=== PATIENT | female | born 1960 | race American Indian/Alaskan Native ===

== ENCOUNTER 2018-03-09 16:40 | Inpatient (IN) | payer OTHER ==
[2018-03-09 17:12] VITALS: BMI 39.5
--- NOTE | 2018-03-09 17:33 | ED PDOC ---
Arrival/HPI - General Chief Complaint: Abnormal Skin Integrity Time Seen by Provider: 03/09/18 16:45 Historian: Patient - History of Present Illness Narrative History of Present Illness (Text): 03/09/18 17:04 57 year old female, with past medical history of diabetes, hypertension and past surgical history of hysterectomy, presents to the Emergency Department for evaluation of left foot 3rd digit ulceration since 4 weeks. Patient informs visiting her rugby union footballer Dr. Gilliam, who subsequently referred patient to the wound center for evaluation. At the wound center, patient was informed of infection to bone and was subsequently sent to the Emergency Department by Dr. Mi for evaluation of possible osteomyelitis and admission to the hospital. At bedside, patient denies any other somatic complaints. Patient denies any f ever, chills, nausea, vomiting, diarrhea, abdominal pain, chest pain, shortness of breath, cough, headache, dizziness, neck pain, back pain, or any other complaints. PMD: Giselle Time/Duration: > week Symptom Onset: Gradual Symptom Course: Unchanged Activities at Onset: Light Context: Other (Referred from the wound center) Past Medical History - Provider Review Nursing Documentation Reviewed: Yes - Infectious Disease Hx of Infectious Diseases: None - Cardiac Hx Cardiac Disorders: Yes Hx Hypertension: Yes - Pulmonary Hx Respiratory Disorders: No - Neurological Hx Neurological Disorder: No - HEENT Hx HEENT Disorder: No - Renal Hx Renal Disorder: No - Endocrine/Metabolic Hx Endocrine Disorders: Yes Hx Diabetes Mellitus Type 2: Yes - Hematological/Oncological Hx Blood Disorders: No - Integumentary Hx Dermatological Disorder: Yes Other/Comment: B/L foot ulcers - Musculoskeletal/Rheumatological Hx Musculoskeletal Disorders: No - Gastrointestinal Hx Gastrointestinal Disorders: No - Genitourinary/Gynecological Hx Genitourinary Disorders: No - Psychiatric Hx Psychophysiologic Disorder: No Hx Substance Use: No - Surgical History Hx Cholecystectomy: Yes Family/Social History - Physician Review Nursing Documentation Reviewed: Yes Family/Social History: Unknown Family HX Smoking Status: Never Smoked Hx Alcohol Use: No Hx Substance Use: No Allergies/Home Meds Allergies/Adverse Reactions: Allergies No Known Allergies Allergy (Verified 03/09/18 16:59) Home Medications: Home Meds Medication Instructions Recorded Confirmed Gabapentin [Neurontin] 1 cap PO DAILY 03/09/18 03/09/18 Glyburide-Metformin 5-500 mg 1 tab PO DAILY 03/09/18 03/09/18 Losartan-Hctz 100-25 mg Tab 1 tab PO DAILY 03/09/18 03/09/18 Nabumetone 1 tab PO DAILY 03/09/18 03/09/18 Simvastatin [Zocor] 1 tab PO DAILY 03/09/18 03/09/18 Review of Systems - Physician Review All systems were reviewed & negative as marked: Yes - Review of Systems Constitutional: absent: Fevers Respiratory: absent: SOB, Cough Cardiovascular: absent: Chest Pain Gastrointestinal: absent: Abdominal Pain, Diarrhea, Nausea, Vomiting Genitourinary Female: absent: Dysuria, Hematuria Musculoskeletal: absent: Back Pain, Neck Pain Skin: Ulcer (left foot 3rd digit) Neurological: absent: Headache, Dizziness Physical Exam Vital Signs Reviewed: Yes Vital Signs Temp Pulse Resp BP Pulse Ox 03/09/18 16:58 98.2 F 83 19 172/94 H 100 Temperature: Afebrile Blood Pressure: Hypertensive Pulse: Regular Respiratory Rate: Normal Appearance: Positive for: Well-Appearing, Non-Toxic, Comfortable Pain Distress: None Mental Status: Positive for: Alert and Oriented X 3 - Systems Exam Head: Present: Atraumatic, Normocephalic Pupils: Present: PERRL Extroacular Muscles: Present: EOMI Conjunctiva: Present: Normal Neck: Present: Normal Range of Motion Respiratory/Chest: Present: Clear to Auscultation, Good Air Exchange. No: Respiratory Distress, Accessory Muscle Use Cardiovascular: Present: Regular Rate and Rhythm, Normal S1, S2. No: Murmurs Abdomen: No: Tenderness, Distention, Peritoneal Signs Back: Present: Normal Inspection Upper Extremity: Present: Normal Inspection. No: Cyanosis, Edema Lower Extremity: Present: Other (no palpable pt or dp pulses. Open wound to left 3rd to dorsal aspect, at PIP. Clear drainage. ). No: Edema Neurological: Present: GCS=15, CN II-XII Intact, Speech Normal Skin: Present: Warm, Dry, Normal Color. No: Rashes Psychiatric: Present: Alert, Oriented x 3, Normal Insight, Normal Concentration Medical Decision Making ED Course and Treatment: 03/09/18 17:04 Impression: 57 year old female presents to the Emergency Department for evaluation of left foot 3rd digit ulceration. Differential Diagnosis included but are not limited to: Osteomyelitis Plan: -- Labs -- Blood Culture -- Wound Culture -- X-ray of Left Foot -- US of Lower Extremity -- Reassess and disposition Prior Visits: Notes and results from previous visits were reviewed. Progress Notes: 03/09/18 17:04 2+ dp pulse achieved with doppler. 03/09/18 18:55 X-ray of left foot reviewed, shows air around 3rd digit, fracture to the 2nd digit and possible osteomyelitis. Patient was made aware and reports no discom fort to the area. Patient states she possibly have had fracture in the past to one of her digits but is unable to recall the incident or the time. 03/09/18 19:08 Discussed case with medical secretary receptionist, who is aware and agrees with Emergency Department management plan, accepts patient under Dr. Pelletier's service. 03/09/18 19:42 Dr. Pelletier evaluated patient at bedside, accepts patient under her service. 03/09/18 19:46 Patient reports noncompliance with her blood pressure medications all day. - RAD Interpretation Radiology Orders: 03/09/18 17:07 FOOT LEFT 3 VIEWS ROUTINE [RAD] Stat 03/09/18 17:14 DUPLEX LOWER EXTRM ARTR BILAT [US] Stat - Scribe Statement The provider has reviewed the documentation as recorded by the Scribe Ana Mccartney. All medical record entries made by the Scribe were at my direction and personally dictated by me. I have reviewed the chart and agree that the record accurately reflects my personal performance of the history, physical exam, medical decision making, and the department course for this patient. I have also personally directed, reviewed, and agree with the discharge instructions and disposition. Disposition/Present on Arrival - Present on Arrival History of DVT/PE: No History of Uncontrolled Diabetes: No Urinary Catheter: No History of Decub. Ulcer: No History Surgical Site Infection Following: None - Disposition Disposition Time: 19:10 Forms: [employer] ([place])
[2018-03-09 18:01] LABS: BASO # 0.04 K/mm3 (0.0-2.0); BASO % 0.6 % (0.0-3.0); EOS # 0.4 (0.0-0.7); EOS % 4.9 % (1.5-5.0); GRAN # 3.27 (1.4-6.5); GRAN % 45.3 % (50.0-68.0); HEMOGLOBIN 11.6 g/dL (12.0-16.0); LYMPH % 41.7 % (22.0-35.0); MEAN CELL VOLUME 91.3 fl (80.0-105.0); MEAN CORPUSCULAR HEMOGLOBIN 29.7 pg (25.0-35.0); MEAN CORPUSCULAR HGB CONC 32.5 g/dl (31.0-37.0); MEAN PLATELET VOLUME 11.2 fl (7.0-11.0); MONO # 0.5 (0.1-0.6); MONO % 7.5 % (1.0-6.0); RBC 3.91 10^6/uL (3.5-6.1); RED CELL DISTRIBUTION WIDTH 13.5 % (11.5-14.5); WHITE BLOOD COUNT 7.2 10^3/ul (4.5-11.0)
[2018-03-09] MEDS ORDERED: Vancomycin 1gm in NS 250ml 1 GM/250 ML BAG IVPB STA (18:56)
--- NOTE | 2018-03-09 19:12 | CP.PCM.HP ---
<Kosta Capps - Last Filed: 03/09/18 20:42> History of Present Illness - History of Present Illness History of Present Illness: Kosta Capps PGY1 History and Physical for Dr Pelletier Pt is a 57 year old female, with PMH of DM, HTN, HLD, and peripheral neuropathy who presents to the ED for evaluation of left foot 3rd digit ulceration since 3 weeks. Pt states she was breaking in a new pair of shoes and noticed that a sore was forming. Pt has not seen a unisaw operator for the past 5 years because she has been looking for a new one. Patient informs visiting her new unisaw operator Dr. Gilliam, who subsequently referred patient to the wound center for evaluation. Patient was informed of possible infection to bone and was subsequently sent to the ED for evaluation of possible osteomyelitis and admission to the hospital. Pt states her unisaw operator found bone fragments in the ulcer and sent them to pathology. Pt has never had a bone infection in the past. She states that she only goes to the unisaw operator when she has "foot problems". Pt denies any drainage or pus, she states that the ulcer started to bleed this week which is why she decided to go to the unisaw operator. Patient denies any fever, chills, nausea, vomiting, diarrhea, abdominal pain, chest pain, shortness of breath, cough, headache, or dizziness. A 12 point ROS was obtained and added to the HPI where appropriate. PMH: DM, HTN, peripheral neuropathy, HLD PSH: cholecystectomy, gastric bypass, hammertoe, FH: mother 68, DM stomach cancer, Father 70, cancer SH: tobacco denies, alcohol denies, drugs denies Home meds: losartan/HCTZ 100-25, gabapentin 300, glyburide/metformin 5-500, simvastain 20, nabumetone 750 Allergies: denies ED: pt given vancomycin, xray of foot shows fracture of 2nd toe(pt unaware of fracture or any trauma), pt denies any history of kidney disease or calcium derangements Present on Admission - Present on Admission Any Indicators Present on Admission: No Review of Systems - Review of Systems Review of Systems: a 12 point ROS was obtained and added to the HPI where appropriate Past Patient History - Infectious Disease Hx of Infectious Diseases: None - Past Social History Smoking Status: Never Smoked - CARDIAC Hx Cardiac Disorders: Yes Hx Hypertension: Yes - PULMONARY Hx Respiratory Disorders: No - NEUROLOGICAL Hx Neurological Disorder: No - HEENT Hx HEENT Problems: No - RENAL Hx Chronic Kidney Disease: No - ENDOCRINE/METABOLIC Hx Endocrine Disorders: Yes Hx Diabetes Mellitus Type 2: Yes - HEMATOLOGICAL/ONCOLOGICAL Hx Blood Disorders: No - INTEGUMENTARY Hx Dermatological Problems: Yes Other/Comment: B/L foot ulcers - MUSCULOSKELETAL/RHEUMATOLOGICAL Hx Musculoskeletal Disorders: No - GASTROINTESTINAL Hx Gastrointestinal Disorders: No - GENITOURINARY/GYNECOLOGICAL Hx Genitourinary Disorders: No - PSYCHIATRIC Hx Psychophysiologic Disorder: No Hx Substance Use: No - SURGICAL HISTORY Hx Cholecystectomy: Yes - ANESTHESIA Hx Anesthesia: No Meds Allergies/Adverse Reactions: Allergies Allergy/AdvReac Type Severity Reaction Status Date / Time No Known Allergies Allergy Verified 03/09/18 16:59 Physical Exam - Constitutional Appears: No Acute Distress - Head Exam Head Exam: ATRAUMATIC, NORMAL INSPECTION - Eye Exam Eye Exam: EOMI - ENT Exam ENT Exam: Mucous Membranes Moist - Respiratory Exam Respiratory Exam: Clear to Auscultation Bilateral, NORMAL BREATHING PATTERN. absent: Wheezes, Respiratory Distress - Cardiovascular Exam Cardiovascular Exam: RRR, +S1, +S2. absent: Diastolic murmur, Systolic Murmur - GI/Abdominal Exam GI & Abdominal Exam: Normal Bowel Sounds, Soft - Extremities Exam Extremities exam: Positive for: full ROM, pedal pulses present. Negative for: calf tenderness Additional comments: left foot, middle digit has ulcer on superior aspect of toe, foot has deformity - Neurological Exam Neurological exam: Alert, Oriented x3 - Psychiatric Exam Psychiatric exam: Normal Affect, Normal Mood - Skin Skin Exam: Intact, Normal Color, Warm Results - Vital Signs Recent Vital Signs: Last Vital Signs Temp 98.7 F 03/09/18 18:41 Pulse 80 03/09/18 18:41 Resp 17 03/09/18 18:41 BP 200/109 H 03/09/18 18:41 Pulse Ox 100 03/09/18 18:41 - Labs Result Diagrams: 03/09/18 17:45 03/09/18 19:23 Labs: Laboratory Results - last 24 hr 03/09/18 17:45 WBC 7.2 RBC 3.91 Hgb 11.6 L Hct 35.7 L MCV 91.3 MCH 29.7 MCHC 32.5 RDW 13.5 Plt Count 274 MPV 11.2 H Gran % 45.3 L Lymph % (Auto) 41.7 H Barnes % (Auto) 7.5 H Eos % (Auto) 4.9 Baso % (Auto) 0.6 Gran # 3.27 Lymph # (Auto) 3.0 Barnes # (Auto) 0.5 Eos # (Auto) 0.4 Baso # (Auto) 0.04 ESR 5 Assessment & Plan - Assessment and Plan (Free Text) Assessment: Pt is a 57 year old female, with PMH of DM, HTN, HLD, and peripheral neuropathy who presents to the ED for evaluation of left foot 3rd digit ulceration since 3 weeks, pt was sent here to be evaluated for osteomyelitis. Plan: Possible Osteomyelitis of Left foot, 3rd digit - follow up blood cultures - follow up wound cultures - follow up official read of foot Xray - follow up MRI - follow up procal - vancomycin, renally dosed, (pt may tolerate up to 1500mg per 24 hours, per pharmacy) - follow up duplex - ID consulted - Vascular consulted - Podiatry consulted Elevated Creatinine - Cr 2.2 - BUN 28 - pt denies history of kidney disease Hypocalcemia - follow up PTH - follow up repeat CMP - Ca 6.7, (corrected for albumin to 7.58) - pt denies history of calcium derangements DM - peripheral neuropathy - gabapentin - ISS - A1C HTN - HCTZ - losartan HLD - lipid panel - continue home simvastatin Ppx - lovenox Pt seen, examined, assessment and plan discussed with Dr Liyah Capps PGY1 - Date & Time Date: 03/09/18 Time: 20:26 <Stephania Pelletier - Last Filed: 03/09/18 23:45> Results - Vital Signs Recent Vital Signs: Last Vital Signs Temp 98.7 F 03/09/18 18:41 Pulse 79 03/09/18 23:00 Resp 18 03/09/18 23:00 BP 138/70 03/09/18 23:00 Pulse Ox 98 03/09/18 23:00 - Labs Result Diagrams: 03/09/18 17:45 03/09/18 22:04 Labs: Laboratory Results - last 24 hr 03/09/18 03/09/18 03/09/18 17:45 19:23 22:04 WBC 7.2 RBC 3.91 Hgb 11.6 L Hct 35.7 L MCV 91.3 MCH 29.7 MCHC 32.5 RDW 13.5 Plt Count 274 MPV 11.2 H Gran % 45.3 L Lymph % (Auto) 41.7 H Barnes % (Auto) 7.5 H Eos % (Auto) 4.9 Baso % (Auto) 0.6 Gran # 3.27 Lymph # (Auto) 3.0 Barnes # (Auto) 0.5 Eos # (Auto) 0.4 Baso # (Auto) 0.04 ESR 5 Sodium 143 140 Potassium 3.8 4.4 Chloride 118 H 113 H Carbon Dioxide 18 L 19 L Anion Gap 10 13 BUN 28 H 33 H Creatinine 2.2 H 2.8 H Est GFR ( Amer) 28 21 Est GFR (Non-Af Amer) 23 17 Random Glucose 153 H 240 H Calcium 6.7 L* 8.1 L Phosphorus 4.4 Magnesium 1.7 Total Bilirubin 0.4 0.3 AST 20 21 ALT 25 27 Alkaline Phosphatase 91 120 Total Protein 6.2 7.0 Albumin 2.9 L 3.5 Globulin 3.3 3.5 Albumin/Globulin Ratio 0.9 L 1.0 L Attending/Attestation - Attestation I have personally seen and examined this patient.: Yes I have fully participated in the care of the patient.: Yes I have reviewed all pertinent clinical information: Yes Notes (Text): 03/09/18 23:38 Patient seen with the resident by the bedside. Case discussed in detail. O/E pt's R foot has old healed surgical scars. Agree with the resident's documentation,assessment and plan of treatment.
[2018-03-09 19:41] LABS: ALB/GLOB RATIO 0.9 (1.1-1.8); ALBUMIN 2.9 g/dL (3.0-4.8); CALCIUM 6.7 mg/dL (8.4-10.5)
[2018-03-09] MEDS ORDERED: Sodium Chloride 0.9% 1,000 ML IV SCH (20:00)
[2018-03-09 22:22] LABS: ALBUMIN 3.5 g/dL (3.0-4.8); ALT/SGPT 27 U/L (7-56); AST/SGOT 21 U/L (14-36); BLOOD UREA NITROGEN 33 mg/dL (7-21); CALCIUM 8.1 mg/dL (8.4-10.5); GFR NON-AFRICAN AMERICAN 17
[2018-03-09] MEDS: Sodium Chloride 0.9% 1,000 ML IV SCH (23:30)
[2018-03-10 01:01] LABS: CREATININE,RANDOM URINE 63 mg/dL
[2018-03-10] MEDS ORDERED: Pneumococcal 23-Valent Vaccine IM ONE (01:36)
[2018-03-10] MEDS ORDERED: Influenza Vaccine 60 mcg/0.5 mL SYR (4YR UP) IM ONE (01:36)
[2018-03-10 07:02] LABS: BASO # 0.06 K/mm3 (0.0-2.0); BASO % 0.9 % (0.0-3.0); EOS # 0.3 (0.0-0.7); EOS % 4.8 % (1.5-5.0); GRAN # 2.75 (1.4-6.5); GRAN % 40.3 % (50.0-68.0); HEMOGLOBIN 10.4 g/dL (12.0-16.0); LYMPH % 44.6 % (22.0-35.0); MEAN CELL VOLUME 92.9 fl (80.0-105.0); MEAN CORPUSCULAR HEMOGLOBIN 29.6 pg (25.0-35.0); MEAN CORPUSCULAR HGB CONC 31.9 g/dl (31.0-37.0); MEAN PLATELET VOLUME 10.5 fl (7.0-11.0); MONO # 0.6 (0.1-0.6); MONO % 9.4 % (1.0-6.0); RBC 3.51 10^6/uL (3.5-6.1); RED CELL DISTRIBUTION WIDTH 13.3 % (11.5-14.5); WHITE BLOOD COUNT 6.8 10^3/ul (4.5-11.0)
[2018-03-10 07:11] LABS: ALBUMIN 3.5 g/dL (3.0-4.8); CALCIUM 8.5 mg/dL (8.4-10.5)
[2018-03-10] MEDS: Insulin Lispro (humaLOG) LOW Coverage SC SCH ×4 (07:53→22:44)
[2018-03-10] MEDS ORDERED: Enoxaparin 40 mg Syringe SC SCH (10:00)
--- NOTE | 2018-03-10 10:04 | US ---
PROCEDURE: Lower extremity SABAS exam HISTORY: Peripheral vascular disease with pain and left 3rd toe ulcer. Diabetes. PHYSICIAN(S): Rigo Hebert MD. FINDINGS: The exam is limited by noncompressible vessels at multiple levels. The left resting SABAS is not obtainable. The right resting SABAS is abnormally elevated, 1.35 The brachial systolic pressures are symmetric. The high thigh pressures are noncompressible. The high thigh PVR waveforms are relatively normal and symmetric. The calf PVR waveforms augment normally. No significant gradients are noted across the thighs. The left ankle and metatarsal PVR waveforms are relatively normal. The right ankle and metatarsal waveforms are mildly diminished in amplitude. This could represent subtle right tibial occlusive disease. IMPRESSION: 1. Limited study due to calcified, noncompressible vessels. 2. Possible right tibial occlusive disease
[2018-03-10] MEDS: Piperacillin/Tazobact 3.375 gm 100 ML IVPB SCH ×2 (10:11→17:19)
--- NOTE | 2018-03-10 11:02 | CP.PCM.PN ---
Subjective - Date & Time of Evaluation Date of Evaluation: 03/10/18 Time of Evaluation: 11:00 - Subjective Subjective: Podiatry consult note for Dr. Beckett/Hiwot, Pt is a 57 year old female, with PMH of DM, HTN, HLD, and peripheral neuropathy who was seen at bedside for evaluation of left foot 3rd digit ulceration since 3 weeks. Patient states she bought a new pair of sneakers and noticed that a sore was forming. Patient states she recently saw a railroad repairer and was advised to come to the ED because the bone was coming out. Patient states the railroad repairer sent the bone to pathology. Denies seeing any drainage Patient denies any fever, chills, nausea, vomiting, chest pain, shortness of breath, cough, headache, or dizziness. PMH: DM, HTN, peripheral neuropathy, HLD PSH: cholecystectomy, gastric bypass, hammertoe, FH: mother 68, DM stomach cancer, Father 70, cancer SH: tobacco denies, alcohol denies, drugs denies Home meds: losartan/HCTZ 100-25, gabapentin 300, glyburide/metformin 5-500, simvastain 20, nabumetone 750 Allergies: denies Objective - Vital Signs/Intake and Output Vital Signs (last 24 hours): Temp Pulse Resp BP Pulse Ox 97.6 F 74 20 138/84 99 03/10/18 06:00 03/10/18 06:00 03/10/18 06:00 03/10/18 06:00 03/10/18 06:00 Intake and Output: 03/10/18 03/10/18 06:59 18:59 Intake Total 720 Balance 720 - Medications Medications: Current Medications Ascorbic Acid (Vitamin C 500 Mg Tab) 500 mg PO DAILY [facility] Last Admin: 03/10/18 10:10 Dose: 500 mg Enoxaparin Sodium (Lovenox) 40 mg SC DAILY [facility]; Protocol Last Admin: 03/10/18 10:09 Dose: 40 mg Gabapentin (Neurontin) 300 mg PO DAILY [facility]; Protocol Last Admin: 03/10/18 10:10 Dose: 300 mg Sodium Chloride (Sodium Chloride 0.9%) 1,000 mls @ 60 mls/hr IV .[id number] [facility] Last Admin: 03/09/18 23:30 Dose: 60 mls/hr Piperacillin Sod/Tazobactam Sod (Zosyn 3.375 In Ns 100ml) 100 mls @ 25 mls/hr IVPB Q8H [facility]; Protocol Last Admin: 03/10/18 10:11 Dose: 25 mls/hr Insulin Human Lispro (Humalog Low) 0 units SC ACHS [facility]; Protocol Last Admin: 03/10/18 07:53 Dose: Not Given Zinc Sulfate (Zinc Sulfate 220 Mg Cap) 220 mg PO DAILY [facility] Last Admin: 03/10/18 10:10 Dose: 220 mg - Labs Labs: 03/10/18 06:40 03/10/18 06:40 - Constitutional Appears: Well, Non-toxic, No Acute Distress - Head Exam Head Exam: ATRAUMATIC, NORMOCEPHALIC - Extremities Exam Additional comments: Left lower extremity exam: Vascular: DP 1/4, PT nonpalpable, CFT <3 secs x 4, TG warm to cool, no erythema noted, edema noted to the third digit Derm: .6 cm circular ulcer noted on the dorsal third PIPJ, no drainage or malodor noted, probe to bone, hyperpigmented skin noted periwound, base is 50:50 fibrotic and granular, no other open lesions noted Ortho: no pain on palpation to the third or second digit not. Neuro: protective sensation grossly diminished - Neurological Exam Neurological Exam: Alert, Awake, Oriented x3 - Psychiatric Exam Psychiatric exam: Normal Affect - Skin Skin Exam: Normal Color Assessment and Plan - Assessment and Plan (Free Text) Assessment: 57 yo female seen at bedside for left third digit ulcer with possible osteomyelitis Plan: Patient seen and evaluated Chart, labs and vitals reviewed; afebrile and wbc 9.9 Wound cultures taken and ordered Surgical shoe dispensed MRI of the LLE ordered arterial studies ordered x-ray ordered and reviewed: official read pending Podiatry will continue to follow the patient while in house Thank you for allowing us to partake in care of this patient
--- NOTE | 2018-03-10 11:30 | CP.PCM.PN ---
<Kosta Capps - Last Filed: 03/10/18 11:51> Subjective - Date & Time of Evaluation Date of Evaluation: 03/10/18 Time of Evaluation: 07:00 - Subjective Subjective: Pt seen and examined this morning. Pt denies fever, chills, diaphoresis, chest pain, SOB or foot pain. Objective - Vital Signs/Intake and Output Vital Signs (last 24 hours): Temp Pulse Resp BP Pulse Ox 97.6 F 74 20 138/84 99 03/10/18 06:00 03/10/18 06:00 03/10/18 06:00 03/10/18 06:00 03/10/18 06:00 Intake and Output: 03/10/18 03/10/18 06:59 18:59 Intake Total 720 Balance 720 - Medications Medications: Current Medications Ascorbic Acid (Vitamin C 500 Mg Tab) 500 mg PO DAILY [facility] Last Admin: 03/10/18 10:10 Dose: 500 mg Enoxaparin Sodium (Lovenox) 40 mg SC DAILY [facility]; Protocol Last Admin: 03/10/18 10:09 Dose: 40 mg Gabapentin (Neurontin) 300 mg PO DAILY [facility]; Protocol Last Admin: 03/10/18 10:10 Dose: 300 mg Sodium Chloride (Sodium Chloride 0.9%) 1,000 mls @ 60 mls/hr IV .[id number] [facility] Last Admin: 03/09/18 23:30 Dose: 60 mls/hr Piperacillin Sod/Tazobactam Sod (Zosyn 3.375 In Ns 100ml) 100 mls @ 25 mls/hr IVPB Q8H [facility]; Protocol Last Admin: 03/10/18 10:11 Dose: 25 mls/hr Insulin Human Lispro (Humalog Low) 0 units SC ACHS [facility]; Protocol Last Admin: 03/10/18 07:53 Dose: Not Given Zinc Sulfate (Zinc Sulfate 220 Mg Cap) 220 mg PO DAILY [facility] Last Admin: 03/10/18 10:10 Dose: 220 mg - Labs Labs: 03/10/18 06:40 03/10/18 06:40 - Head Exam Head Exam: ATRAUMATIC, NORMAL INSPECTION, NORMOCEPHALIC - Eye Exam Eye Exam: EOMI - ENT Exam ENT Exam: Mucous Membranes Moist - Neck Exam Neck Exam: Full ROM - Respiratory Exam Respiratory Exam: Clear to Ausculation Bilateral, NORMAL BREATHING PATTERN. absent: Wheezes, Respiratory Distress - Cardiovascular Exam Cardiovascular Exam: RRR, +S1, +S2. absent: Diastolic murmur, Murmur - GI/Abdominal Exam GI & Abdominal Exam: Soft, Normal Bowel Sounds. absent: Tenderness - Extremities Exam Extremities Exam: Full ROM, Normal Inspection. absent: Pedal Edema Additional comments: 3rd toe on left foot bandage clean dry and intact - Neurological Exam Neurological Exam: Alert, Awake, Normal Gait, Oriented x3 - Psychiatric Exam Psychiatric exam: Normal Affect, Normal Mood - Skin Skin Exam: Dry, Normal Color, Warm Assessment and Plan - Assessment and Plan (Free Text) Assessment: Pt is a 57 year old female, with PMH of DM, HTN, HLD, and peripheral neuropathy who presents to the ED for evaluation of left foot 3rd digit ulceration since 3 weeks, pt was sent here to be evaluated for osteomyelitis. Plan: Possible Osteomyelitis of Left foot, 3rd digit - blood cultures: pending - wound cultures: pending - Foot Xray: pending official read - MRI foot: pending official read - Procal: pending - CRP pending - vancomycin dose given in ED - zosyn - Duplex LE: limited study due to calcified, noncompressible vessels. Possible right tibial occlusive disease - ID, Vascular, Podiatry consulted Elevated Creatinine - Cr 2.8, BUN 31 - renal US: pending - pt denies history of kidney disease - Nephrology consulted Hypocalcemia - follow up PTH - Ca 8.5 - pt denies history of calcium derangements DM - peripheral neuropathy - gabapentin - ISS - A1C HTN - HCTZ - losartan HLD - Trig 68, LDL 67, HDL 53 - continue home simvastatin Ppx - lovenox Pt seen, examined, assessment and plan discussed with Dr Delmy Capps PGY1 Internal Medicine Resident <Ana Brock - Last Filed: 03/11/18 07:08> Objective - Vital Signs/Intake and Output Vital Signs (last 24 hours): Temp Pulse Resp BP Pulse Ox 97.6 F 87 20 136/76 98 03/10/18 16:59 03/10/18 16:59 03/10/18 16:59 03/10/18 16:59 03/10/18 16:59 Intake and Output: 03/10/18 03/11/18 18:59 06:59 Intake Total 800 Balance 800 - Medications Medications: Current Medications Ascorbic Acid (Vitamin C 500 Mg Tab) 500 mg PO DAILY [facility] Last Admin: 03/10/18 10:10 Dose: 500 mg Enoxaparin Sodium (Lovenox) 30 mg SC DAILY [facility]; Protocol Gabapentin (Neurontin) 300 mg PO DAILY [facility]; Protocol Last Admin: 03/10/18 10:10 Dose: 300 mg Sodium Chloride (Sodium Chloride 0.9%) 1,000 mls @ 60 mls/hr IV .[id number] [facility] Last Admin: 03/11/18 00:47 Dose: 60 mls/hr Piperacillin Sod/Tazobactam Sod (Zosyn 3.375 In Ns 100ml) 100 mls @ 25 mls/hr IVPB Q8H [facility]; Protocol Last Admin: 03/11/18 00:46 Dose: 25 mls/hr Insulin Human Lispro (Humalog Low) 0 units SC ACHS [facility]; Protocol Last Admin: 03/10/18 22:44 Dose: Not Given Zinc Sulfate (Zinc Sulfate 220 Mg Cap) 220 mg PO DAILY [facility] Last Admin: 03/10/18 10:10 Dose: 220 mg - Labs Labs: 03/11/18 05:30 03/11/18 05:30 Attending/Attestation - Attestation I have personally seen and examined this patient.: Yes I have fully participated in the care of the patient.: Yes I have reviewed all pertinent clinical information, including history, physical exam and plan: Yes Notes (Text): 03/10/18 57 year old female with past medical history of diabetes, hypertension, peripheral neuropathy and dyslipidemia who presented with left foot 3rd digit ulceration. Sent by her automotive parts counterperson to rule out osteomyelitis. Xray and MRI done which were negative for osteomyelitis. ESR and CRP are not elevated. Continue with iv antibiotics as per ID and wound care as per podiatry. LE doppler was reviewed. Possible right tibial occlusive disease. IR evaluation was appreciated. Patient also found to have RITO. Metformin, HCTZ and losartan are held. Renal US was negative. Patient is on iv fluids. Will continue to monitor kidney function closely and follow up with nephrology recommendations. Ana Brock MD Hospitalist.
--- NOTE | 2018-03-10 13:06 | RAD ---
Date of service: 03/09/2018 HISTORY: baseline cxr COMPARISON: No prior. TECHNIQUE: Chest PA and lateral FINDINGS: LUNGS: No active pulmonary disease. PLEURA: No significant pleural effusion identified. No pneumothorax apparent. CARDIOVASCULAR: No aortic atherosclerotic calcification present OSSEOUS STRUCTURES: No significant abnormalities. VISUALIZED UPPER ABDOMEN: Normal. OTHER FINDINGS: None. IMPRESSION: No active disease.
--- NOTE | 2018-03-10 13:31 | MRI ---
Date of service: 03/10/2018 PROCEDURE: MRI Left Foot HISTORY: Pain. COMPARISON: None available. TECHNIQUE: Multiecho multiplanar sequences were performed through the left foot without the use of intravenous contrast. FINDINGS: BONES: Degenerative changes at the 1st metatarsal/medial cuneiform junction with pass planus foot deformity and increased talonavicular fault. Mild additional marrow reactive changes in the calcaneus and navicular. Extensive dorsal subcutaneous soft tissue swelling. MUSCLES: Normal. SOFT TISSUES: Normal. LISFRANC LIGAMENT: Normal. PLANTAR PLATE: Normal. EXTENSOR TENDONS: Normal. FLEXOR TENDONS: Normal. OTHER FINDINGS: None. IMPRESSION: Degenerative changes at the 1st metatarsal/medial cuneiform junction with pass planus foot deformity and increased talonavicular fault. Mild additional marrow reactive changes in the calcaneus and navicular. Extensive dorsal subcutaneous soft tissue swelling. No evidence of osteomyelitis.
--- NOTE | 2018-03-10 13:41 | RAD ---
Date of service: 03/09/2018 PROCEDURE: Left Foot Radiographs. HISTORY: wound, r/o osteomyelitis COMPARISON: None. FINDINGS: BONES: No acute fracture. Pes planus deformity. No osseous erosion or periosteal reaction appreciated. Plantar calcaneal spur noted. JOINTS: Evaluation of the interphalangeal joints is somewhat limited technically. There is erosive change seen at the 2nd PIP joint. Uncertain significance. Possible inflammatory arthropathy. Extensive degenerative arthritis at the 1st through 4th tarsal-metatarsal articulations. The intertarsal articulations are grossly preserved. SOFT TISSUES: Vascular calcifications OTHER FINDINGS: None. IMPRESSION: No fracture. Erosive arthritis at the 2nd PIP joint and extensive degenerative arthritis at TMT 1 through 4. Pes planus. Plantar calcaneal spur.
--- NOTE | 2018-03-10 14:54 | US ---
Date of service: 03/10/2018 PROCEDURE: Ultrasound of the Kidneys HISTORY: RITO on CKD? COMPARISON: None available. TECHNIQUE: Sonogram of the kidneys. FINDINGS: RIGHT KIDNEY: Measures: 10.4 cm. Normal in size, contour and echogenicity. No stone, solid mass lesion or hydronephrosis visualized. LEFT KIDNEY: Measures: 11.1 cm. Normal in size, contour and echogenicity. No stone, solid mass lesion or hydronephrosis visualized. OTHER FINDINGS: None. IMPRESSION: Unremarkable renal sonogram.
--- NOTE | 2018-03-10 19:21 | CP.PCM.CON ---
History of Present Illness - History of Present Illness History of Present Illness: Infectious Disease Consultation: March 10, 2018 57 year old AA female, with PMH of DM, HTN, HLD, and peripheral neuropathy who presents to the ED for evaluation of left foot 3rd digit ulceration since 3 we eks. Pt states she was breaking in a new pair of shoes and noticed that a sore was forming on the left foot 3rd toe. Pt has not seen a founder for the past 5 years because she has been looking for a new one. Patient informs visiting her new founder Dr. Gilliam, who subsequently referred patient to the wound center for evaluation. Patient was informed of possible infection to bone and was subsequently sent to the ED for evaluation of possible osteomyelitis and admission to the hospital. Pt states her founder found bone fragments in the ulcer and sent them to pathology. Pt has never had a bone infection in the past. She states that she only goes to the founder when she has "foot problems". Pt denies any drainage or pus, she states that the ulcer started to bleed this week which is why she decided to go to the founder. Patient denies any fever, chills, nausea, vomiting, diarrhea, abdominal pain, chest pain, shortness of breath, cough, headache, or dizziness. The patient does state that she has had DM and HTN for 20 years and has several effects from prior uncontrolled diabetes. The patient has diabetic retinopathy, diabetic neuropathy, reduced kidney function, and possible PVD. PMHx: DM, HTN, peripheral neuropathy, HLD, diabetic neuropathy, diabetic retinopathy. PSHx: cholecystectomy, gastric bypass, hammertoe, Family History: mother 68, DM stomach cancer, Father 70, cancer Social History: tobacco denies, alcohol denies, drugs denies Home meds: losartan/HCTZ 100-25, gabapentin 300, glyburide/metformin 5-500, simvastain 20, nabumetone 750 Active Medications Ascorbic Acid (Vitamin C 500 Mg Tab) 500 mg PO DAILY [facility] Last Admin: 03/10/18 10:10 Dose: 500 mg Enoxaparin Sodium (Lovenox) 30 mg SC DAILY [facility]; Protocol Gabapentin (Neurontin) 300 mg PO DAILY [facility]; Protocol Last Admin: 03/10/18 10:10 Dose: 300 mg Sodium Chloride (Sodium Chloride 0.9%) 1,000 mls @ 60 mls/hr IV .[id number] [facility] Last Admin: 03/09/18 23:30 Dose: 60 mls/hr Piperacillin Sod/Tazobactam Sod (Zosyn 3.375 In Ns 100ml) 100 mls @ 25 mls/hr IVPB Q8H [facility]; Protocol Last Admin: 03/10/18 17:19 Dose: 25 mls/hr Insulin Human Lispro (Humalog Low) 0 units SC ACHS [facility]; Protocol Last Admin: 03/10/18 17:18 Dose: 2 unit Zinc Sulfate (Zinc Sulfate 220 Mg Cap) 220 mg PO DAILY [facility] Last Admin: 03/10/18 10:10 Dose: 220 mg Allergies: NKDA ROS: NO fevers, chills, nausea, vomiting, diarrhea, headaches, dizziness, chest pain, abdominal pain, melena, hematuria, hematemesis, hematochezia, depression, anxiety. Past Patient History - Infectious Disease Hx of Infectious Diseases: None - Past Social History Smoking Status: Never Smoked - CARDIAC Hx Cardiac Disorders: Yes Hx Hypertension: Yes - PULMONARY Hx Respiratory Disorders: No - NEUROLOGICAL Hx Neurological Disorder: No - HEENT Hx HEENT Problems: No - RENAL Hx Chronic Kidney Disease: No - ENDOCRINE/METABOLIC Hx Endocrine Disorders: Yes Hx Diabetes Mellitus Type 2: Yes - HEMATOLOGICAL/ONCOLOGICAL Hx Blood Disorders: No - INTEGUMENTARY Hx Dermatological Problems: Yes Other/Comment: B/L foot ulcers - MUSCULOSKELETAL/RHEUMATOLOGICAL Hx Falls: No - GASTROINTESTINAL Hx Gastrointestinal Disorders: No - GENITOURINARY/GYNECOLOGICAL Hx Genitourinary Disorders: No - PSYCHIATRIC Hx Psychophysiologic Disorder: No - SURGICAL HISTORY Hx Surgeries: Yes (gastric bypass) Hx Cholecystectomy: Yes Other/Comment: right foot ulcer sx - ANESTHESIA Hx Anesthesia: No Meds Allergies/Adverse Reactions: Allergies Allergy/AdvReac Type Severity Reaction Status Date / Time No Known Allergies Allergy Verified 03/09/18 16:59 - Medications Medications: Current Medications Ascorbic Acid (Vitamin C 500 Mg Tab) 500 mg PO DAILY [facility] Last Admin: 03/10/18 10:10 Dose: 500 mg Enoxaparin Sodium (Lovenox) 30 mg SC DAILY [facility]; Protocol Gabapentin (Neurontin) 300 mg PO DAILY [facility]; Protocol Last Admin: 03/10/18 10:10 Dose: 300 mg Sodium Chloride (Sodium Chloride 0.9%) 1,000 mls @ 60 mls/hr IV .[id number] [facility] Last Admin: 03/09/18 23:30 Dose: 60 mls/hr Piperacillin Sod/Tazobactam Sod (Zosyn 3.375 In Ns 100ml) 100 mls @ 25 mls/hr IVPB Q8H [facility]; Protocol Last Admin: 03/10/18 17:19 Dose: 25 mls/hr Insulin Human Lispro (Humalog Low) 0 units SC ACHS [facility]; Protocol Last Admin: 03/10/18 17:18 Dose: 2 unit Zinc Sulfate (Zinc Sulfate 220 Mg Cap) 220 mg PO DAILY [facility] Last Admin: 03/10/18 10:10 Dose: 220 mg Physical Exam - Constitutional Appears: Non-toxic, No Acute Distress, Chronically Ill - Head Exam Head Exam: ATRAUMATIC, NORMOCEPHALIC - Eye Exam Eye Exam: EOMI, PERRL Pupil Exam: NORMAL ACCOMODATION, PERRL - ENT Exam ENT Exam: Mucous Membranes Moist, Normal External Ear Exam, TM's Normal Bilaterally - Neck Exam Neck exam: Positive for: Full Rom, Normal Inspection - Respiratory Exam Respiratory Exam: Clear to Auscultation Bilateral, NORMAL BREATHING PATTERN. absent: Rales, Rhonchi, Wheezes - Cardiovascular Exam Cardiovascular Exam: REGULAR RHYTHM, RRR, +S1, +S2 - GI/Abdominal Exam GI & Abdominal Exam: Normal Bowel Sounds, Soft. 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 Wound appears clean overall. Sensation in lower extremities are severely diminished. - Neurological Exam Neurological exam: Alert, CN II-XII Intact, Oriented x3 - Psychiatric Exam Psychiatric exam: Normal Affect, Normal Mood - Skin Skin Exam: Intact, Normal Color Results - Vital Signs Recent Vital Signs: Last Vital Signs Temp 97.6 F 03/10/18 16:59 Pulse 87 03/10/18 16:59 Resp 20 03/10/18 16:59 BP 136/76 03/10/18 16:59 Pulse Ox 98 03/10/18 16:59 - Labs Result Diagrams: 03/10/18 06:40 03/10/18 06:40 Labs: Laboratory Results - last 24 hr 03/09/18 03/09/18 03/09/18 18:45 19:23 19:25 WBC RBC Hgb Hct MCV MCH MCHC RDW Plt Count MPV Gran % Lymph % (Auto) [place] % (Auto) Eos % (Auto) Baso % (Auto) Gran # Lymph # (Auto) [place] # (Auto) Eos # (Auto) Baso # (Auto) Sodium 143 Potassium 3.8 Chloride 118 H Carbon Dioxide 18 L Anion Gap 10 BUN 28 H Creatinine 2.2 H Est GFR ( Amer) 28 Est GFR (Non-Af Amer) 23 POC Glucose (mg/dL) 89 Random Glucose 153 H Hemoglobin A1c Calcium 6.7 L* Phosphorus Magnesium Total Bilirubin 0.4 AST 20 ALT 25 Alkaline Phosphatase 91 C-Reactive Protein Total Protein 6.2 Albumin 2.9 L Globulin 3.3 Albumin/Globulin Ratio 0.9 L Triglycerides Cholesterol LDL Cholesterol Direct HDL Cholesterol Procalcitonin < 0.05 L Ur Random Creatinine Ur Random Sodium Urine Microalbumin 03/09/18 03/10/18 03/10/18 22:04 00:15 00:15 WBC RBC Hgb Hct MCV MCH MCHC RDW Plt Count MPV Gran % Lymph % (Auto) [place] % (Auto) Eos % (Auto) Baso % (Auto) Gran # Lymph # (Auto) [place] # (Auto) Eos # (Auto) Baso # (Auto) Sodium 140 Potassium 4.4 Chloride 113 H Carbon Dioxide 19 L Anion Gap 13 BUN 33 H Creatinine 2.8 H Est GFR ( Amer) 21 Est GFR (Non-Af Amer) 17 POC Glucose (mg/dL) Random Glucose 240 H Hemoglobin A1c Calcium 8.1 L Phosphorus 4.4 Magnesium 1.7 Total Bilirubin 0.3 AST 21 ALT 27 Alkaline Phosphatase 120 C-Reactive Protein < 5.00 Total Protein 7.0 Albumin 3.5 Globulin 3.5 Albumin/Globulin Ratio 1.0 L Triglycerides Cholesterol LDL Cholesterol Direct HDL Cholesterol Procalcitonin Ur Random Creatinine 63 Ur Random Sodium 131 Urine Microalbumin 30.1 H 03/10/18 03/10/18 03/10/18 06:40 06:40 06:40 WBC 6.8 RBC 3.51 Hgb 10.4 L Hct 32.6 L MCV 92.9 MCH 29.6 MCHC 31.9 RDW 13.3 Plt Count 229 MPV 10.5 Gran % 40.3 L Lymph % (Auto) 44.6 H [place] % (Auto) 9.4 H Eos % (Auto) 4.8 Baso % (Auto) 0.9 Gran # 2.75 Lymph # (Auto) 3.0 [place] # (Auto) 0.6 Eos # (Auto) 0.3 Baso # (Auto) 0.06 Sodium 143 Potassium 4.3 Chloride 113 H Carbon Dioxide 24 Anion Gap 11 BUN 31 H Creatinine 2.8 H Est GFR ( Amer) 21 Est GFR (Non-Af Amer) 17 POC Glucose (mg/dL) Random Glucose 105 Hemoglobin A1c 7.2 H Calcium 8.5 Phosphorus Magnesium Total Bilirubin 0.4 AST 27 ALT 26 Alkaline Phosphatase 108 C-Reactive Protein Total Protein 6.9 Albumin 3.5 Globulin 3.4 Albumin/Globulin Ratio 1.0 L Triglycerides 68 Cholesterol 135 LDL Cholesterol Direct 67 HDL Cholesterol 53 Procalcitonin Ur Random Creatinine Ur Random Sodium Urine Microalbumin 03/10/18 03/10/18 03/10/18 07:46 11:30 16:01 WBC RBC Hgb Hct MCV MCH MCHC RDW Plt Count MPV Gran % Lymph % (Auto) [place] % (Auto) Eos % (Auto) Baso % (Auto) Gran # Lymph # (Auto) [place] # (Auto) Eos # (Auto) Baso # (Auto) Sodium Potassium Chloride Carbon Dioxide Anion Gap BUN Creatinine Est GFR ( Amer) Est GFR (Non-Af Amer) POC Glucose (mg/dL) 103 159 H 248 H Random Glucose Hemoglobin A1c Calcium Phosphorus Magnesium Total Bilirubin AST ALT Alkaline Phosphatase C-Reactive Protein Total Protein Albumin Globulin Albumin/Globulin Ratio Triglycerides Cholesterol LDL Cholesterol Direct HDL Cholesterol Procalcitonin Ur Random Creatinine Ur Random Sodium Urine Microalbumin Assessment & Plan - Assessment and Plan (Free Text) Assessment: 57 yo AA female with ulceration to the 3rd toe of the left foot with removal of a piece of bone from same site at her founder office. The patient with DM and HTN with complications of uncontrolled DM. Start on IV Zosyn for now. Noted the patient currently has poor renal function at this time. Wound cultures taken. Supportive care. MRI ordered. ESR of 5. Rule out osteomyelitis. May need extended course of antibiotics given the number of diabetic sequelae the patient has. Thank you for allowing me to participate in the care of the patient, we will follow with you.
--- NOTE | 2018-03-10 20:13 | CON ---
DATE OF CONSULTATION: 03/10/2018 REASON FOR CONSULTATION: Acute kidney injury. HISTORY OF PRESENT ILLNESS: This is a 57-year-old lady with a history of NIDDM for 15 plus years, diabetic retinopathy, history of laser treatments, hypertension, hyperlipidemia, diabetic foot ulcer, no knowledge of chronic kidney disease, was admitted yesterday with complaints of infected left foot ulcer. The patient reports that she has seen a toy designer in the past, was checked out and was told that everything is good. She denies any knowledge of any protein in the urine. At the time of admission, she was found to have elevated creatinine of 2.2. Her creatinine beena to 2.8, hence consultation is requested. PAST MEDICAL AND SURGICAL HISTORY: NIDDM, diabetic retinopathy, laser treatments to both eyes, hypertension, diabetic neuropathy, hyperlipidemia, history of cholecystectomy, history of surgery for hammertoe on the right foot, history of gastric bypass 4 years ago. FAMILY HISTORY: Diabetes in mother, gastric CA in mother, prostate CA in father. SOCIAL HISTORY: No smoking, no alcohol use, no IV drug abuse. MEDICATIONS AT HOME: Losartan/hydrochlorothiazide 100/25, gabapentin 300, glyburide/metformin 5/500, simvastatin 20, nabumetone 750. ALLERGIES: NO KNOWN DRUG ALLERGIES. REVIEW OF SYSTEMS: All systems are reviewed, pertinent positives as mentioned in the history of presenting illness, rest unremarkable. PHYSICAL EXAMINATION: GENERAL: Middle-aged lady lying in bed in no acute distress. VITAL SIGNS: Blood pressure 136/76, heart rate 87, respiratory rate 20, temperature 97.6. HEENT: Normocephalic, atraumatic, positive pallor. NECK: Supple, no JVD. LUNGS: Bilateral equal air entry, bilateral equal expansion. CARDIAC: S1 and S2, regular rate and rhythm, no murmur, no rub. ABDOMEN: Soft, nondistended, nontender, bowel sounds present. EXTREMITIES: Dressing of the left foot. INTAKE AND OUTPUT: Not charted. LABORATORY DATA: WBC 6.8, hemoglobin 10.4, hematocrit 32.6, platelets 229. Sodium 143, potassium 4.3, chloride 113, CO2 of 24, BUN 31, creatinine 2.8, glucose 105, calcium 8.5, A1c 7.2. AST 27, ALT 26, albumin 3.5. Urinalysis not done. Urine microalbumin 30. CURRENT MEDICATIONS: Insulin, Lovenox, Neurontin, normal saline at 60, Zinc, Zosyn 3.375 every 8 hours, Cozaar 100 given yesterday, hydrochlorothiazide 25 given yesterday, Lipitor 40, Lovenox, vancomycin 1 g given yesterday. ASSESSMENT: 1. Acute kidney injury superimposed on chronic kidney disease, stage 3 suspect. 2. Infected diabetic foot ulcer. 3. Longstanding diabetes, but well controlled. 4. History of diabetic retinopathy, history of laser treatments. 5. Suspect diabetic nephropathy. 6. ? osteomyelitis. PLAN: 1. Check urinalysis, check urine protein. 2. Agree with holding losartan for the time being. 3. Hold hydrochlorothiazide. 4. Check renal ultrasound for size and echotexture. 5. Avoid nephrotoxins. 6. Hope to restart ARB for renal protection zone. 7. Hold metformin for now. Thank you for the courtesy of this consultation. We will follow this patient closely with you. Ofelia John MD
[2018-03-10 21:40] LABS: URINE BILIRUBIN NEGATIVE (NEGATIVE); URINE BLOOD NEGATIVE (NEGATIVE); URINE GLUCOSE (UA) NEGATIVE (NEGATIVE); URINE LEUKOCYTE ESTERASE NEGATIVE Leu/uL (NEGATIVE); URINE PROTEIN NEGATIVE mg/dL (<30 mg/dL); URINE UROBILINOGEN 0.2 E.U./dL (<1 E.U./dL)
[2018-03-10 21:46] LABS: URINE APPEARANCE SL CLOUDY (CLEAR); URINE COLOR LIGHT YELLOW (YELLOW)
[2018-03-11] MEDS: Piperacillin/Tazobact 3.375 gm 100 ML IVPB SCH ×3 (00:46→17:07)
[2018-03-11] MEDS: Sodium Chloride 0.9% 1,000 ML IV SCH (00:47)
--- NOTE | 2018-03-11 02:03 | PN ---
DATE: 03/10/2018 TIME: 10:15 a.m. SUBJECTIVE: This is a 57-year-old diabetic with a left third digit ulceration. I reviewed her SABAS exam, which is somewhat limited by calcification. However, the PVR waveforms are normal at all levels on the left. There is some right tibial occlusive disease. I do not think further vascular evaluation is necessary at this time. Await input from podiatry concerning the management of the digit ulceration. Rigo Hebert MD
[2018-03-11 06:36] LABS: ALBUMIN 3.3 g/dL (3.0-4.8); CALCIUM 8.2 mg/dL (8.4-10.5)
[2018-03-11 06:38] LABS: BASO # 0.04 K/mm3 (0.0-2.0); BASO % 0.6 % (0.0-3.0); EOS # 0.3 (0.0-0.7); EOS % 5.1 % (1.5-5.0); GRAN # 2.75 (1.4-6.5); GRAN % 44.3 % (50.0-68.0); HEMOGLOBIN 10.2 g/dL (12.0-16.0); LYMPH # 2.6 (1.2-3.4); MEAN CELL VOLUME 93.2 fl (80.0-105.0); MEAN CORPUSCULAR HEMOGLOBIN 29.1 pg (25.0-35.0); MEAN CORPUSCULAR HGB CONC 31.2 g/dl (31.0-37.0); MEAN PLATELET VOLUME 10.5 fl (7.0-11.0); MONO # 0.6 (0.1-0.6); RBC 3.51 10^6/uL (3.5-6.1); RED CELL DISTRIBUTION WIDTH 13.3 % (11.5-14.5); WHITE BLOOD COUNT 6.2 10^3/ul (4.5-11.0)
--- NOTE | 2018-03-11 08:15 | CP.PCM.PN ---
<JefryKostabella Camachoron - Last Filed: 03/11/18 16:35> Subjective - Date & Time of Evaluation Date of Evaluation: 03/11/18 Time of Evaluation: 08:12 - Subjective Subjective: Pt seen and examined at bedside. Denies chest pain, SOB, or foot pain. Objective - Vital Signs/Intake and Output Vital Signs (last 24 hours): Temp Pulse Resp BP Pulse Ox 97.6 F 87 20 136/76 98 03/10/18 16:59 03/10/18 16:59 03/10/18 16:59 03/10/18 16:59 03/10/18 16:59 Intake and Output: 03/11/18 03/11/18 06:59 18:59 Intake Total 800 Balance 800 - Medications Medications: Current Medications Ascorbic Acid (Vitamin C 500 Mg Tab) 500 mg PO DAILY [facility] Last Admin: 03/10/18 10:10 Dose: 500 mg Enoxaparin Sodium (Lovenox) 30 mg SC DAILY [facility]; Protocol Gabapentin (Neurontin) 300 mg PO DAILY [facility]; Protocol Last Admin: 03/10/18 10:10 Dose: 300 mg Sodium Chloride (Sodium Chloride 0.9%) 1,000 mls @ 60 mls/hr IV .[id number] [facility] Last Admin: 03/11/18 00:47 Dose: 60 mls/hr Piperacillin Sod/Tazobactam Sod (Zosyn 3.375 In Ns 100ml) 100 mls @ 25 mls/hr IVPB Q8H [facility]; Protocol Last Admin: 03/11/18 00:46 Dose: 25 mls/hr Insulin Human Lispro (Humalog Low) 0 units SC ACHS [facility]; Protocol Last Admin: 03/10/18 22:44 Dose: Not Given Zinc Sulfate (Zinc Sulfate 220 Mg Cap) 220 mg PO DAILY [facility] Last Admin: 03/10/18 10:10 Dose: 220 mg - Labs Labs: 03/11/18 05:30 03/11/18 05:30 - Constitutional Appears: Non-toxic, No Acute Distress - Head Exam Head Exam: ATRAUMATIC, NORMAL INSPECTION, NORMOCEPHALIC - Eye Exam Eye Exam: EOMI - ENT Exam ENT Exam: Mucous Membranes Moist - Neck Exam Neck Exam: Full ROM - Respiratory Exam Respiratory Exam: Clear to Ausculation Bilateral, NORMAL BREATHING PATTERN. absent: Wheezes, Respiratory Distress, Stridor - Cardiovascular Exam Cardiovascular Exam: RRR, +S1, +S2. absent: Bradycardia, Tachycardia - GI/Abdominal Exam GI & Abdominal Exam: Soft, Normal Bowel Sounds. absent: Tenderness - Extremities Exam Extremities Exam: Full ROM. absent: Pedal Edema, Tenderness Additional comments: 3rd digit, left foot ulcer is nonbleeding, no discharge, no pain to palpation - Neurological Exam Neurological Exam: Alert, Awake, Oriented x3 - Psychiatric Exam Psychiatric exam: Normal Affect, Normal Mood - Skin Skin Exam: Dry, Normal Color, Warm Assessment and Plan - Assessment and Plan (Free Text) Assessment: Pt is a 57 year old female, with PMH of DM, HTN, HLD, and peripheral neuropathy who presents to the ED for evaluation of left foot 3rd digit ulceration since 3 weeks, pt was sent here to be evaluated for osteomyelitis. Plan: Possible Osteomyelitis of Left foot, 3rd digit - blood cultures: NGTD - wound cultures: NGTD - Foot Xray: 2nd digit fracture - MRI foot: no signs of osteomyelitis - Procal: <0.05 - CRP: <5 - vancomycin dose given in ED - zosyn - Duplex LE: limited study due to calcified, noncompressible vessels. Possible right tibial occlusive disease - ID following - Vascular appreciate recs - Podiatry, surgical shoe dispensed, bactroban ordered, keep wound covered at all times, Elevated Creatinine - Cr 3.0, BUN 37 - renal US: unremarkable renal sonogram - Nephrology Dr John, recommends holding HCTZ, losartan. Rec starting Amlodipine 5, and Hydralazine PRN, rec discharge tomorrow if Cr plateus, Renal scan tomorrow to assess for ATN Hypocalcemia - PTH 452 - Ca 8.2 DM - peripheral neuropathy - gabapentin - ISS - A1C 7.2 HTN - start amlodipine 5 - start hydralazine PRN HLD - Trig 68, LDL 67, HDL 53 - continue home simvastatin Ppx - lovenox Pt seen, examined, assessment and plan discussed with Dr Delmy Capps PGY1 Internal Medicine Resident <Ana Brock - Last Filed: 03/11/18 17:56> Objective - Vital Signs/Intake and Output Vital Signs (last 24 hours): Temp Pulse Resp BP Pulse Ox 98.0 F 76 19 145/90 99 03/11/18 17:08 03/11/18 17:08 03/11/18 17:08 03/11/18 17:08 03/11/18 17:08 Intake and Output: 03/11/18 03/11/18 06:59 18:59 Intake Total 800 Balance 800 - Medications Medications: Current Medications Amlodipine Besylate (Norvasc) 5 mg PO DAILY [facility] Ascorbic Acid (Vitamin C 500 Mg Tab) 500 mg PO DAILY [facility] Last Admin: 03/11/18 10:55 Dose: 500 mg Enoxaparin Sodium (Lovenox) 30 mg SC DAILY [facility]; Protocol Last Admin: 03/11/18 10:54 Dose: 30 mg Gabapentin (Neurontin) 300 mg PO DAILY [facility]; Protocol Last Admin: 03/11/18 10:55 Dose: 300 mg Hydralazine HCl (Apresoline) 50 mg PO Q8H PRN PRN Reason: Systolic Blood Pressure Sodium Chloride (Sodium Chloride 0.9%) 1,000 mls @ 60 mls/hr IV .[id number] [facility] Last Admin: 03/11/18 00:47 Dose: 60 mls/hr Piperacillin Sod/Tazobactam Sod (Zosyn 3.375 In Ns 100ml) 100 mls @ 25 mls/hr IVPB Q8H [facility]; Protocol Last Admin: 03/11/18 17:07 Dose: 25 mls/hr Insulin Human Lispro (Humalog Low) 0 units SC ACHS [facility]; Protocol Last Admin: 03/11/18 17:38 Dose: 1 unit Mupirocin (Bactroban Ointment) 0 gm TOP BID [facility] Last Admin: 03/11/18 17:09 Dose: 1 applic Zinc Sulfate (Zinc Sulfate 220 Mg Cap) 220 mg PO DAILY [facility] Last Admin: 03/11/18 10:55 Dose: 220 mg - Labs Labs: 03/11/18 05:30 03/11/18 05:30 Attending/Attestation - Attestation I have personally seen and examined this patient.: Yes I have fully participated in the care of the patient.: Yes I have reviewed all pertinent clinical information, including history, physical exam and plan: Yes Notes (Text): 03/11/18 17:54 57 year old female with past medical history of diabetes, hypertension, peripheral neuropathy and dyslipidemia who presented with left foot 3rd digit ulceration. Sent by her facilities director to rule out osteomyelitis. Xray and MRI done which were negative for osteomyelitis. ESR and CRP are not elevated. Continue with iv antibiotics as per ID and wound care as per podiatry. LE doppler showed possible right tibial occlusive disease. IR evaluation was appreciated. Patient also found to have acute on chronic kidney disease. Metformin, HCTZ and losartan are held. Renal US was negative. Patient is on iv fluids. Nephrology is following and ordered renal scan. She is started on norvasc for hypertension. Overall patient's symptoms are improving. Possible d/c planning if kidney function is stable or improves. Ana Brock MD Hospitalist.
[2018-03-11] MEDS: Insulin Lispro (humaLOG) LOW Coverage SC SCH ×4 (10:54→21:05)
[2018-03-11] MEDS: Enoxaparin 30 mg Syringe SC SCH (10:54)
--- NOTE | 2018-03-11 11:28 | CP.PCM.PN ---
Subjective - Date & Time of Evaluation Date of Evaluation: 03/11/18 Time of Evaluation: 11:27 - Subjective Subjective: Podiatry consult note for Dr. Beckett/Hiwot, Pt is a 57 year old female, with PMH of DM, HTN, HLD, and peripheral neuropathy who was seen at bedside for evaluation of left foot 3rd digit ulceration since 3 weeks.Denies any acute overnight events. Denies f/n/v/sob. States she should be going home today. Objective - Vital Signs/Intake and Output Vital Signs (last 24 hours): Temp Pulse Resp BP Pulse Ox 97.6 F 87 20 136/76 98 03/10/18 16:59 03/10/18 16:59 03/10/18 16:59 03/10/18 16:59 03/10/18 16:59 Intake and Output: 03/11/18 03/11/18 06:59 18:59 Intake Total 800 Balance 800 - Medications Medications: Current Medications Ascorbic Acid (Vitamin C 500 Mg Tab) 500 mg PO DAILY [facility] Last Admin: 03/11/18 10:55 Dose: 500 mg Enoxaparin Sodium (Lovenox) 30 mg SC DAILY [facility]; Protocol Last Admin: 03/11/18 10:54 Dose: 30 mg Gabapentin (Neurontin) 300 mg PO DAILY [facility]; Protocol Last Admin: 03/11/18 10:55 Dose: 300 mg Sodium Chloride (Sodium Chloride 0.9%) 1,000 mls @ 60 mls/hr IV .[id number] [facility] Last Admin: 03/11/18 00:47 Dose: 60 mls/hr Piperacillin Sod/Tazobactam Sod (Zosyn 3.375 In Ns 100ml) 100 mls @ 25 mls/hr IVPB Q8H [facility]; Protocol Last Admin: 03/11/18 10:55 Dose: 25 mls/hr Insulin Human Lispro (Humalog Low) 0 units SC ACHS [facility]; Protocol Last Admin: 03/11/18 10:54 Dose: Not Given Zinc Sulfate (Zinc Sulfate 220 Mg Cap) 220 mg PO DAILY [facility] Last Admin: 03/11/18 10:55 Dose: 220 mg - Labs Labs: 03/11/18 05:30 03/11/18 05:30 - Constitutional Appears: Well, Non-toxic, No Acute Distress - Head Exam Head Exam: ATRAUMATIC, NORMOCEPHALIC - Extremities Exam Additional comments: Left lower extremity exam: Vascular: DP 1/4, PT nonpalpable, CFT <3 secs x 4, TG warm to cool, no erythema noted, edema noted to the third digit Derm: .6 cm circular ulcer noted on the dorsal third PIPJ, no drainage or malodor noted, probe to bone, hyperpigmented skin noted periwound, base is 50:50 fibrotic and granular, no other open lesions noted Ortho: no pain on palpation to the third or second digit not. Neuro: protective sensation grossly diminished - Neurological Exam Neurological Exam: Alert, Awake, Oriented x3 - Psychiatric Exam Psychiatric exam: Normal Affect - Skin Skin Exam: Normal Color Assessment and Plan - Assessment and Plan (Free Text) Assessment: 57 yo female seen at bedside for left third digit ulcer; no osteomyelitis per MRI Plan: Patient seen and evaluated Chart, labs and vitals reviewed; afebrile and wbc 9.9 Wound cultures taken and ordered; pending Surgical shoe dispensed MRI of the LLE ordered; no osteo arterial studies ordered; right tibial occlusive disease. bactroban ordered; keep wound covered at all times x-ray ordered and reviewed: no osteo Podiatry will continue to follow the patient while in house Thank you for allowing us to partake in care of this patient
--- NOTE | 2018-03-11 13:38 | PN ---
DATE: 03/11/2018 SUBJECTIVE: The patient is seen lying in bed. She is awake. She is alert. She is comfortable. She reports feeling much better today. She denies any chest pain. She denies any palpitations. She denies any pain in her foot. PHYSICAL EXAMINATION: GENERAL: Middle-aged lady, lying in bed. VITAL SIGNS: Blood pressure 136/76 ?, heart rate 87, respiratory rate 20, temperature 98. HEENT: Normocephalic, atraumatic. NECK: Supple, no JVD. LUNGS: Bilateral equal air entry, bilateral equal expansion. CARDIAC: S1 and S2, regular rate and rhythm, no murmur, no rub. ABDOMEN: Obese, distended, soft, nontender, bowel sounds present. EXTREMITIES: Dressing of the left fourth toe. INTAKE AND OUTPUT: Not charted. LABORATORY DATA: WBC 6.2, hemoglobin 10, hematocrit 32.7, platelets 219. Sodium 142, potassium 4.8, chloride 115, CO2 of 25, BUN 37, creatinine 3, glucose 84, calcium 8.2, albumin 3.3. Urinalysis: Light yellow, slightly cloudy, pH 6, specific 1.025, no protein, no blood, urine sodium 131, urine creatinine 63. Toe culture negative so far. Blood cultures no growth. Renal ultrasound, normal size kidneys. MRI of the foot, extensive dorsal subcutaneous soft tissue swelling with no evidence of osteomyelitis. CURRENT MEDICATIONS: Apresoline 50 every 8, Lovenox, Neurontin, amlodipine, normal saline at 60, zinc sulfate, Zosyn 3.375 every 8. ASSESSMENT: 1. Acute kidney injury superimposed on chronic kidney disease stage 3, worsening renal parameters, suspect acute tubular necrosis. 2. Longstanding diabetes. 3. Severe hypertension. 4. Diabetic foot ulcer. PLAN: 1. In light of her worsening creatinine, I would hold losartan for the time being. 2. Nuclear renal scan to assess ATN. 3. Continue antibiotics as per ID recommendations. 4. Avoid nephrotoxins. 5. Discharge tomorrow if creatinine plateaus. Ofelia John MD
[2018-03-11] MEDS: Mupirocin 2% Ointment 15 GM TUBE TOP SCH (17:09)
--- NOTE | 2018-03-11 18:16 | CP.PCM.PN ---
Subjective - Date & Time of Evaluation Date of Evaluation: 03/11/18 Time of Evaluation: 17:15 - Subjective Subjective: Infectious Disease Follow Up: March 11, 2018 57 year old AA female, with PMH of DM, HTN, HLD, and peripheral neuropathy who presents to the ED for evaluation of left foot 3rd digit ulceration since 3 weeks. Pt states she was breaking in a new pair of shoes and noticed that a sore was forming on the left foot 3rd toe. Pt has not seen a cosmetic sales assistant for the past 5 years because she has been looking for a new one. Patient informs visiting her new cosmetic sales assistant Dr. Gilliam, who subsequently referred patient to the wound center for evaluation. Patient was informed of possible infection to bone and was subsequently sent to the ED for evaluation of possible osteomyelitis and admission to the hospital. Pt states her cosmetic sales assistant found bone fragments in the ulcer and sent them to pathology. Pt has never had a bone infection in the past. She states that she only goes to the cosmetic sales assistant when she has "foot problems". Pt denies any drainage or pus, she states that the ulcer started to bleed this week which is why she decided to go to the cosmetic sales assistant. Patient denies any fever, chills, nausea, vomiting, diarrhea, abdominal pain, chest pain, shortness of breath, cough, headache, or dizziness. The patient does state that she has had DM and HTN for 20 years and has several effects from prior uncontrolled diabetes. The patient has diabetic retinopathy, diabetic neuropathy, reduced kidney function, and possible PVD. MRI did not exhibit any signs of osteomyelitis. Cultures negative to date. Objective - Vital Signs/Intake and Output Vital Signs (last 24 hours): Temp Pulse Resp BP Pulse Ox 98.0 F 76 19 145/90 99 03/11/18 17:08 03/11/18 17:08 03/11/18 17:08 03/11/18 17:08 03/11/18 17:08 Intake and Output: 03/11/18 03/11/18 06:59 18:59 Intake Total 800 Balance 800 - Medications Medications: Current Medications Amlodipine Besylate (Norvasc) 5 mg PO DAILY [facility] Ascorbic Acid (Vitamin C 500 Mg Tab) 500 mg PO DAILY [facility] Last Admin: 03/11/18 10:55 Dose: 500 mg Enoxaparin Sodium (Lovenox) 30 mg SC DAILY [facility]; Protocol Last Admin: 03/11/18 10:54 Dose: 30 mg Gabapentin (Neurontin) 300 mg PO DAILY [facility]; Protocol Last Admin: 03/11/18 10:55 Dose: 300 mg Hydralazine HCl (Apresoline) 50 mg PO Q8H PRN PRN Reason: Systolic Blood Pressure Sodium Chloride (Sodium Chloride 0.9%) 1,000 mls @ 60 mls/hr IV .[id number] [facility] Last Admin: 03/11/18 00:47 Dose: 60 mls/hr Piperacillin Sod/Tazobactam Sod (Zosyn 3.375 In Ns 100ml) 100 mls @ 25 mls/hr IVPB Q8H [facility]; Protocol Last Admin: 03/11/18 17:07 Dose: 25 mls/hr Insulin Human Lispro (Humalog Low) 0 units SC ACHS [facility]; Protocol Last Admin: 03/11/18 17:38 Dose: 1 unit Mupirocin (Bactroban Ointment) 0 gm TOP BID [facility] Last Admin: 03/11/18 17:09 Dose: 1 applic Zinc Sulfate (Zinc Sulfate 220 Mg Cap) 220 mg PO DAILY [facility] Last Admin: 03/11/18 10:55 Dose: 220 mg - Labs Labs: 03/11/18 05:30 03/11/18 05:30 - Constitutional Appears: Non-toxic, No Acute Distress, Chronically Ill - Head Exam Head Exam: ATRAUMATIC, NORMOCEPHALIC - Eye Exam Eye Exam: EOMI, PERRL Pupil Exam: NORMAL ACCOMODATION, PERRL - ENT Exam ENT Exam: Mucous Membranes Moist, Normal External Ear Exam, TM's Normal B ilaterally - Neck Exam Neck Exam: Full ROM, Normal Inspection - Respiratory Exam Respiratory Exam: Clear to Ausculation Bilateral, NORMAL BREATHING PATTERN. absent: Rales, Rhonchi, Wheezes - Cardiovascular Exam Cardiovascular Exam: REGULAR RHYTHM, RRR, +S1, +S2 - GI/Abdominal Exam GI & Abdominal Exam: Soft, Normal Bowel Sounds. absent: Distended, Tenderness - Extremities Exam Additional comments: Third digit ulceration on left foot with removal of bone as per patient in her [employer]'s office. Wound appears clean overall. Sensation in lower extremities are severely diminished. - Neurological Exam Neurological Exam: Alert, Awake, CN II-XII Intact, Oriented x3 - Psychiatric Exam Psychiatric exam: Normal Affect, Normal Mood - Skin Skin Exam: Intact, Normal Color Assessment and Plan - Assessment and Plan (Free Text) Assessment: 57 yo AA female with ulceration to the 3rd toe of the left foot with removal of a piece of bone from same site at her cosmetic sales assistant office. The patient with DM and HTN with complications of uncontrolled DM. Start on IV Zosyn for now. Noted the patient currently has poor renal function at this time. Wound cultures taken. Supportive care. MRI ordered. ESR of 5. Rule out osteomyelitis. May need extended course of antibiotics given the number of diabetic sequelae the patient has. MRI negative. Can consider oral Levaquin 500mg daily for treatment for up to 14 days. Thank you for allowing me to participate in the care of the patient, we will follow with you.
[2018-03-12] MEDS: Piperacillin/Tazobact 3.375 gm 100 ML IVPB SCH ×2 (05:15→14:38)
[2018-03-12 06:38] LABS: BASO # 0.06 K/mm3 (0.0-2.0); BASO % 0.9 % (0.0-3.0); EOS # 0.4 (0.0-0.7); EOS % 5.3 % (1.5-5.0); GRAN # 3.19 (1.4-6.5); HEMOGLOBIN 10.2 g/dL (12.0-16.0); LYMPH # 2.6 (1.2-3.4); LYMPH % 38.8 % (22.0-35.0); MEAN CELL VOLUME 93.4 fl (80.0-105.0); MEAN CORPUSCULAR HEMOGLOBIN 29.1 pg (25.0-35.0); MEAN CORPUSCULAR HGB CONC 31.2 g/dl (31.0-37.0); MEAN PLATELET VOLUME 10.7 fl (7.0-11.0); MONO # 0.5 (0.1-0.6); RBC 3.5 10^6/uL (3.5-6.1); RED CELL DISTRIBUTION WIDTH 13.2 % (11.5-14.5); WHITE BLOOD COUNT 6.8 10^3/uL (4.5-11.0)
[2018-03-12 07:34] LABS: ALBUMIN 3.4 g/dL (3.0-4.8); CALCIUM 8.4 mg/dL (8.4-10.5)
[2018-03-12] MEDS: Insulin Lispro (humaLOG) LOW Coverage SC SCH (08:10)
[2018-03-12] MEDS: Enoxaparin 30 mg Syringe SC SCH (09:33)
[2018-03-12] MEDS: Mupirocin 2% Ointment 15 GM TUBE TOP SCH (09:33)
--- NOTE | 2018-03-12 09:56 | CP.PCM.PN ---
Subjective - Date & Time of Evaluation Date of Evaluation: 03/12/18 Time of Evaluation: 09:54 - Subjective Subjective: Podiatry consult note for Dr. Beckett/Hiwot, Pt is a 57 year old female, with PMH of DM, HTN, HLD, and peripheral neuropathy who was seen at bedside for evaluation of left foot 3rd digit ulceration since 3 weeks.Denies any acute overnight events. Denies f/n/v/sob. States she should be going home today. Objective - Vital Signs/Intake and Output Vital Signs (last 24 hours): Temp Pulse Resp BP Pulse Ox 97.8 F 58 L 20 150/90 97 03/12/18 06:00 03/12/18 06:00 03/12/18 06:00 03/12/18 06:00 03/12/18 06:00 - Medications Medications: Current Medications Amlodipine Besylate (Norvasc) 5 mg PO DAILY [facility] Last Admin: 03/12/18 09:34 Dose: 5 mg Ascorbic Acid (Vitamin C 500 Mg Tab) 500 mg PO DAILY [facility] Last Admin: 03/12/18 09:34 Dose: 500 mg Enoxaparin Sodium (Lovenox) 30 mg SC DAILY [facility]; Protocol Last Admin: 03/12/18 09:33 Dose: 30 mg Gabapentin (Neurontin) 300 mg PO DAILY [facility]; Protocol Last Admin: 03/12/18 09:34 Dose: 300 mg Hydralazine HCl (Apresoline) 50 mg PO Q8H PRN PRN Reason: Systolic Blood Pressure Sodium Chloride (Sodium Chloride 0.9%) 1,000 mls @ 60 mls/hr IV .[id number] [facility] Last Admin: 03/11/18 00:47 Dose: 60 mls/hr Piperacillin Sod/Tazobactam Sod (Zosyn 3.375 In Ns 100ml) 100 mls @ 25 mls/hr IVPB Q8 [facility]; Protocol Last Admin: 03/12/18 05:15 Dose: 25 mls/hr Insulin Human Lispro (Humalog Low) 0 units SC ACHS [facility]; Protocol Last Admin: 03/12/18 08:10 Dose: Not Given Mupirocin (Bactroban Ointment) 0 gm TOP BID [facility] Last Admin: 03/12/18 09:33 Dose: 1 applic Zinc Sulfate (Zinc Sulfate 220 Mg Cap) 220 mg PO DAILY [facility] Last Admin: 03/12/18 09:34 Dose: 220 mg - Labs Labs: 03/12/18 06:00 03/12/18 06:00 - Constitutional Appears: Well, Non-toxic, No Acute Distress - Head Exam Head Exam: ATRAUMATIC - Extremities Exam Additional comments: Left lower extremity exam: Vascular: DP 1/4, PT nonpalpable, CFT <3 secs x 4, TG warm to cool, no erythema noted, edema noted to the third digit Derm: .6 cm circular ulcer noted on the dorsal third PIPJ, no drainage or malodor noted, probe to bone, hyperpigmented skin noted periwound, base is 50:50 fibrotic and granular, no other open lesions noted Ortho: no pain on palpation to the third or second digit not. Neuro: protective sensation grossly diminished Assessment and Plan - Assessment and Plan (Free Text) Assessment: 57 yo female seen at bedside for left third digit ulcer; no osteomyelitis per MRI Plan: Patient seen and evaluated Chart, labs and vitals reviewed; afebrile and wbc 9.9 Wound cultures taken and ordered; pending Surgical shoe dispensed MRI of the LLE ordered; no osteo arterial studies ordered; right tibial occlusive disease. bactroban ordered; keep wound covered at all times x-ray ordered and reviewed: no osteo d/c with oral quinolone Podiatry will continue to follow the patient while in house Thank you for allowing us to partake in care of this patient
--- NOTE | 2018-03-12 11:24 | NM ---
Date of service: 03/12/2018 PROCEDURE: Renal scan with flow study. HISTORY: RITO/ATN COMPARISON: 03/10/2018 renal ultrasound. TECHNIQUE: 10.4 mCi technetium 99 M Mag 3 administered intravenously. FINDINGS: Right Kidney: Flow component: Diminished flow to the right kidney relative to the left. Time to peak: 2.5 min Peak to T1/2 Peak: 10 min. Left Kidney: Flow component: Relative to the right kidney, a perfusion profile of the left is superior. Time to peak: 4.5 min Peak to T1/2 Peak: 10 min. Split Renal Function: Right kidney 34.5 % Left kidney 65.5 % IMPRESSION: Poorly perfused poorly functioning right kidney without an obstructing component. Split renal function a signs 34.5% to the right kidney the remaining 65.5% to the left kidney.
--- NOTE | 2018-03-12 14:51 | CP.PCM.PN ---
Subjective - Date & Time of Evaluation Date of Evaluation: 03/12/18 Time of Evaluation: 13:00 - Subjective Subjective: Infectious Disease Follow Up: March 12, 2018 57 year old AA female, with PMH of DM, HTN, HLD, and peripheral neuropathy who presents to the ED for evaluation of left foot 3rd digit ulceration since 3 weeks. Pt states she was breaking in a new pair of shoes and noticed that a sore was forming on the left foot 3rd toe. Pt has not seen a transitional care liaison for the past 5 years because she has been looking for a new one. Patient informs visiting her new transitional care liaison Dr. Gilliam, who subsequently referred patient to the wound center for evaluation. Patient was informed of possible infection to bone and was subsequently sent to the ED for evaluation of possible osteomyelitis and admission to the hospital. Pt states her transitional care liaison found bone fragments in the ulcer and sent them to pathology. Pt has never had a bone infection in the past. She states that she only goes to the transitional care liaison when she has "foot problems". Pt denies any drainage or pus, she states that the ulcer started to bleed this week which is why she decided to go to the transitional care liaison. Patient denies any fever, chills, nausea, vomiting, diarrhea, abdominal pain, chest pain, shortness of breath, cough, headache, or dizziness. The patient does state that she has had DM and HTN for 20 years and has several effects from prior uncontrolled diabetes. The patient has diabetic retinopathy, diabetic neuropathy, reduced kidney function, and possible PVD. MRI did not exhibit any signs of osteomyelitis. Cultures negative to date. Objective - Vital Signs/Intake and Output Vital Signs (last 24 hours): Temp Pulse Resp BP Pulse Ox 97.8 F 58 L 20 150/90 97 03/12/18 06:00 03/12/18 06:00 03/12/18 06:00 03/12/18 06:00 03/12/18 06:00 - Medications Medications: Current Medications Amlodipine Besylate (Norvasc) 5 mg PO DAILY [facility] Last Admin: 03/12/18 09:34 Dose: 5 mg Ascorbic Acid (Vitamin C 500 Mg Tab) 500 mg PO DAILY [facility] Last Admin: 03/12/18 09:34 Dose: 500 mg Enoxaparin Sodium (Lovenox) 30 mg SC DAILY [facility]; Protocol Last Admin: 03/12/18 09:33 Dose: 30 mg Gabapentin (Neurontin) 300 mg PO DAILY [facility]; Protocol Last Admin: 03/12/18 09:34 Dose: 300 mg Hydralazine HCl (Apresoline) 50 mg PO Q8H PRN PRN Reason: Systolic Blood Pressure Sodium Chloride (Sodium Chloride 0.9%) 1,000 mls @ 60 mls/hr IV .[id number] [facility] Last Admin: 03/11/18 00:47 Dose: 60 mls/hr Piperacillin Sod/Tazobactam Sod (Zosyn 3.375 In Ns 100ml) 100 mls @ 25 mls/hr IVPB Q8 [facility]; Protocol Last Admin: 03/12/18 14:38 Dose: 25 mls/hr Insulin Human Lispro (Humalog Low) 0 units SC ACHS [facility]; Protocol Last Admin: 03/12/18 08:10 Dose: Not Given Mupirocin (Bactroban Ointment) 0 gm TOP BID [facility] Last Admin: 03/12/18 09:33 Dose: 1 applic Zinc Sulfate (Zinc Sulfate 220 Mg Cap) 220 mg PO DAILY [facility] Last Admin: 03/12/18 09:34 Dose: 220 mg - Labs Labs: 03/12/18 06:00 03/12/18 06:00 - Constitutional Appears: Non-toxic, No Acute Distress, Chronically Ill - Head Exam Head Exam: ATRAUMATIC, NORMOCEPHALIC - Eye Exam Eye Exam: EOMI, PERRL Pupil Exam: NORMAL ACCOMODATION, PERRL - ENT Exam ENT Exam: Mucous Membranes Moist, Normal External Ear Exam, TM's Normal Bilaterally - Neck Exam Neck Exam: Full ROM, Normal Inspection - Respiratory Exam Respiratory Exam: Clear to Ausculation Bilateral, NORMAL BREATHING PATTERN. absent: Rales, Rhonchi, Wheezes - Cardiovascular Exam Cardiovascular Exam: REGULAR RHYTHM, RRR, +S1, +S2 - GI/Abdominal Exam GI & Abdominal Exam: Soft, Normal Bowel Sounds. 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 Wound appears clean overall. Sensation in lower extremities are severely diminished. - Neurological Exam Neurological Exam: Alert, Awake, CN II-XII Intact, Oriented x3 - Psychiatric Exam Psychiatric exam: Normal Affect, Normal Mood - Skin Skin Exam: Intact, Normal Color Assessment and Plan - Assessment and Plan (Free Text) Assessment: 57 yo AA female with ulceration to the 3rd toe of the left foot with removal of a piece of bone from same site at her transitional care liaison office. The patient with DM and HTN with complications of uncontrolled DM. Start on IV Zosyn for now. Noted the patient currently has poor renal function at this time. Wound cultures taken. Supportive care. MRI ordered. ESR of 5. Rule out osteomyelitis. May need extended course of antibiotics given the number of diabetic sequelae the patient has. MRI negative. Can consider oral Levaquin 500mg daily for treatment for up to 14 days. No new issues. Thank you for allowing me to participate in the care of the patient, we will follow with you.
[2018-03-12 17:41] VITALS: BP 144/88; PULSE 73; RESP 19; TEMP 98.1; O2SAT 98
--- NOTE | 2018-03-12 18:23 | CP.PCM.DIS ---
<Kosta Capps - Last Filed: 03/12/18 18:19> Provider - Provider Date of Admission: 03/09/18 19:43 Attending physician: Ana Brock MD Time Spent in preparation of Discharge (in minutes): 45 Diagnosis - Discharge Diagnosis (1) RITO (acute kidney injury) Status: Acute Priority: High (2) Hypocalcemia Status: Acute Priority: High (3) Ulcerated, foot Status: Acute Priority: High (4) HTN (hypertension) Status: Acute Priority: High (5) HLD (hyperlipidemia) Status: Acute Priority: High Hospital Course - Lab Results Lab Results: Micro Results 03/09/18 17:45 Blood-Venous Blood Culture - Preliminary NO GROWTH AFTER 3 DAYS 03/10/18 12:00 Toe Gram Stain - Final 03/10/18 12:00 Toe Wound Culture - Preliminary No growth. 03/09/18 19:23 Blood-Venous Blood Culture - Preliminary NO GROWTH AFTER 48 HOURS Most Recent Lab Values WBC 6.8 10^3/uL (4.5-11.0) 03/12/18 06:00 RBC 3.50 10^6/uL (3.5-6.1) 03/12/18 06:00 Hgb 10.2 g/dL (12.0-16.0) L 03/12/18 06:00 Hct 32.7 % (36.0-48.0) L 03/12/18 06:00 MCV 93.4 fl (80.0-105.0) 03/12/18 06:00 MCH 29.1 pg (25.0-35.0) 03/12/18 06:00 MCHC 31.2 g/dl (31.0-37.0) 03/12/18 06:00 RDW 13.2 % (11.5-14.5) 03/12/18 06:00 Plt Count 213 10^3/uL (120.0-450.0) 03/12/18 06:00 MPV 10.7 fl (7.0-11.0) 03/12/18 06:00 Gran % 47.0 % (50.0-68.0) L 03/12/18 06:00 Lymph % (Auto) 38.8 % (22.0-35.0) H 03/12/18 06:00 Cooper % (Auto) 8.0 % (1.0-6.0) H 03/12/18 06:00 Eos % (Auto) 5.3 % (1.5-5.0) H 03/12/18 06:00 Baso % (Auto) 0.9 % (0.0-3.0) 03/12/18 06:00 Gran # 3.19 (1.4-6.5) 03/12/18 06:00 Lymph # (Auto) 2.6 (1.2-3.4) 03/12/18 06:00 Cooper # (Auto) 0.5 (0.1-0.6) 03/12/18 06:00 Eos # (Auto) 0.4 (0.0-0.7) 03/12/18 06:00 Baso # (Auto) 0.06 K/mm3 (0.0-2.0) 03/12/18 06:00 ESR 5 mm/hr (0.0-20.0) 03/09/18 17:45 Sodium 141 mmol/L (132-148) 03/12/18 06:00 Potassium 4.4 mmol/L (3.6-5.0) 03/12/18 06:00 Chloride 114 mmol/L (98-107) H 03/12/18 06:00 Carbon Dioxide 20 mmol/L (21-33) L 03/12/18 06:00 Anion Gap 12 (10-20) 03/12/18 06:00 BUN 36 mg/dL (7-21) H 03/12/18 06:00 Creatinine 3.0 mg/dl (0.7-1.2) H 03/12/18 06:00 Est GFR ( Amer) 19 03/12/18 06:00 Est GFR (Non-Af Amer) 16 03/12/18 06:00 POC Glucose (mg/dL) 127 mg/dL (65-110) H 03/12/18 17:11 Random Glucose 94 mg/dL (70-110) 03/12/18 06:00 Hemoglobin A1c 7.2 % (4.2-6.5) H 03/10/18 06:40 Calcium 8.4 mg/dL (8.4-10.5) 03/12/18 06:00 Phosphorus 4.4 mg/dL (2.5-4.5) 03/09/18 22:04 Magnesium 1.7 mg/dL (1.7-2.2) 03/09/18 22:04 Total Bilirubin 0.4 mg/dL (0.2-1.3) 03/12/18 06:00 AST 27 U/L (14-36) 03/12/18 06:00 ALT 25 U/L (7-56) 03/12/18 06:00 Alkaline Phosphatase 94 U/L (38-126) 03/12/18 06:00 C-Reactive Protein < 5.00 mg/L (0.0-9.9) 03/09/18 22:04 Total Protein 6.8 g/dL (5.8-8.3) 03/12/18 06:00 Albumin 3.4 g/dL (3.0-4.8) 03/12/18 06:00 Globulin 3.5 gm/dL 03/12/18 06:00 Albumin/Globulin Ratio 1.0 (1.1-1.8) L 03/12/18 06:00 Triglycerides 68 mg/dL (35-160) 03/10/18 06:40 Cholesterol 135 mg/dL (130-200) 03/10/18 06:40 LDL Cholesterol Direct 67 mg/dL (0-129) 03/10/18 06:40 HDL Cholesterol 53 mg/dL (29-60) 03/10/18 06:40 Procalcitonin < 0.05 NG/ML (0.19-0.49) L 03/09/18 19:25 PTH Intact Whole Molec 452 pg/mL (14-64) H 03/09/18 22:04 Urine Color Light yellow (YELLOW) 03/10/18 21:30 Urine Appearance Sl cloudy (CLEAR) 03/10/18 21:30 Urine pH 6.0 (4.7-8.0) 03/10/18 21:30 Ur Specific [place] 1.025 (1.005-1.035) 03/10/18 21:30 Urine Protein Negative mg/dL (<30 mg/dL) 03/10/18 21:30 Urine Glucose (UA) Negative mg/dL (NEGATIVE) 03/10/18 21:30 Urine Ketones Negative mg/dL (NEGATIVE) 03/10/18 21:30 Urine Blood Negative (NEGATIVE) 03/10/18 21:30 Urine Nitrate Negative (NEGATIVE) 03/10/18 21:30 Urine Bilirubin Negative (NEGATIVE) 03/10/18 21:30 Urine Urobilinogen 0.2 E.U./dL (<1 E.U./dL) 03/10/18 21:30 Ur Leukocyte Esterase Negative Analilia/uL (NEGATIVE) 03/10/18 21:30 Ur Random Creatinine 63 mg/dL 03/10/18 00:15 Ur Random Sodium 131 meq/L 03/10/18 00:15 Urine Microalbumin 30.1 mg/L (0.0-16.6) H 03/10/18 00:15 - Hospital Course Hospital Course: Pt is a 57 year old female, with PMH of DM, HTN, HLD, and peripheral neuropathy who presented to the ED for evaluation of left foot 3rd digit ulceration since 3 weeks. Pt stated she was breaking in a new pair of shoes and noticed that a sore was forming. Pt had not seen a auto salvage worker for the past 5 years because she has been looking for a new one. Patient informed visiting her new auto salvage worker Dr. Gilliam, who subsequently referred patient to the wound center for evaluation. Patient was informed of possible infection to bone and was subsequently sent to the ED for evaluation of possible osteomyelitis and admission to the hospital. Pt stated her auto salvage worker found bone fragments in the ulcer and sent them to pathology. Pt had never had a bone infection in the past. She stated that she only goes to the auto salvage worker when she has "foot problems". Pt denied any drainage or pus, she stated that the ulcer started to bleed, which is why she decided to go to the auto salvage worker. Patient denied any fever, chills, nausea, vomiting, diarrhea, abdominal pain, chest pain, shortness of breath, cough, headache, or dizziness. In the ED pt was given vancomycin, xray of foot showed fracture of 2nd toe (pt unaware of fracture or any trauma), pt denied any history of kidney disease or calcium derangements. On admission, pt was afebrile without leukocytosis. She was started on IV zosyn and infectious disease, vascular disease, and podiatry were consulted. Xray and MRI were negative for osteomyelitis. ESR and CRP were not elevated. HgbA1c was 7.2. Blood and wound cultures were negative. LE duplex showed possible right tibial occlusive disease and IR was consulted. On admission, her Calcium was noted to be low at 8.1. PTH was 452. Calcium improved to 8.4. BP was noted to be 200/109. Pt was also found to have el evated creatinine 2.8 on admission. Her home metformin, HCTZ, and losartan were held. She was started on Norvasc for BP control. Nephrology was consulted for evaluation of RITO on CKD as well as BP control. Renal ultrasound was negative. Pt underwent nuclear renal scan which showed poorly perfused poorly functioning right kdney without obstruction and split renal function with 34.5% from the ri ght kidney and 65.5% from the Left kidney. Pts creatinine stabilized at 3.0, pts symptoms continued to improve and she was stable for discharge, per Nephrology, Infectious disease, and Podiatry. Pt is being discharged with directions to hold her Losartan/HCTZ and metformin. She will be discharged on Levoquin 500mg daily for empric antibiotic coverage per infectious disease. She will also be discharged on Norvasc for BP control and instructions to followup with her primary medical doctor, podiatry, and nephrology. - Date & Time of H&P Date of H&P: 03/12/18 Time of H&P: 18:22 Discharge Exam - Head Exam Head Exam: ATRAUMATIC, NORMAL INSPECTION, NORMOCEPHALIC - Eye Exam Eye Exam: EOMI - ENT Exam ENT Exam: Mucous Membranes Moist - Respiratory Exam Respiratory Exam: NORMAL BREATHING PATTERN, UNREMARKABLE. absent: Accessory Muscle Use, Wheezes, Stridor - Cardiovascular Exam Cardiovascular Exam: RRR, +S1, +S2. absent: Diastolic murmur, Systolic Murmur - GI/Abdominal Exam GI & Abdominal Exam: Normal Bowel Sounds, Soft, Tenderness, Unremarkable - Extremities Exam Additional comments: ulcer on left foot, 3rd digit - Neurological Exam Neurological exam: Alert, Oriented x3 - Psychiatric Exam Psychiatric exam: Normal Affect, Normal Mood - Skin Skin Exam: Dry, Intact, Normal Color, Warm Discharge Plan - Discharge Medications Prescriptions: amLODIPine [Norvasc] 5 mg PO DAILY #30 tab Gabapentin [Neurontin] 1 cap PO DAILY #30 cap Levofloxacin [Levaquin] 500 mg PO DAILY #14 tablet Simvastatin [Zocor] 1 tab PO DAILY #30 tablet - Follow Up Plan Condition: GOOD Disposition: HOME/ ROUTINE Instructions: Wound Care (DC), Diabetes Type 2 (DC) Additional Instructions: 1. please follow up with your primacy care physician within 1 week 2. please follow up with Dr John for nephrology 3. please take your new medications as directed, you will be provided with new prescriptions 4. if your symptoms return or worsen, please go to the nearest emergency department <Ana Brock - Last Filed: 03/13/18 13:51> Provider - Provider Date of Admission: 03/09/18 19:43 Attending physician: Ana Brock MD Hospital Course - Lab Results Lab Results: Micro Results 03/10/18 12:00 Toe Gram Stain - Final 03/10/18 12:00 Toe Wound Culture - Final No Growth 03/09/18 19:23 Blood-Venous Blood Culture - Preliminary NO GROWTH AFTER 3 DAYS 03/09/18 17:45 Blood-Venous Blood Culture - Preliminary NO GROWTH AFTER 3 DAYS Most Recent Lab Values WBC 6.8 10^3/uL (4.5-11.0) 03/12/18 06:00 RBC 3.50 10^6/uL (3.5-6.1) 03/12/18 06:00 Hgb 10.2 g/dL (12.0-16.0) L 03/12/18 06:00 Hct 32.7 % (36.0-48.0) L 03/12/18 06:00 MCV 93.4 fl (80.0-105.0) 03/12/18 06:00 MCH 29.1 pg (25.0-35.0) 03/12/18 06:00 MCHC 31.2 g/dl (31.0-37.0) 03/12/18 06:00 RDW 13.2 % (11.5-14.5) 03/12/18 06:00 Plt Count 213 10^3/uL (120.0-450.0) 03/12/18 06:00 MPV 10.7 fl (7.0-11.0) 03/12/18 06:00 Gran % 47.0 % (50.0-68.0) L 03/12/18 06:00 Lymph % (Auto) 38.8 % (22.0-35.0) H 03/12/18 06:00 Cooper % (Auto) 8.0 % (1.0-6.0) H 03/12/18 06:00 Eos % (Auto) 5.3 % (1.5-5.0) H 03/12/18 06:00 Baso % (Auto) 0.9 % (0.0-3.0) 03/12/18 06:00 Gran # 3.19 (1.4-6.5) 03/12/18 06:00 Lymph # (Auto) 2.6 (1.2-3.4) 03/12/18 06:00 Cooper # (Auto) 0.5 (0.1-0.6) 03/12/18 06:00 Eos # (Auto) 0.4 (0.0-0.7) 03/12/18 06:00 Baso # (Auto) 0.06 K/mm3 (0.0-2.0) 03/12/18 06:00 ESR 5 mm/hr (0.0-20.0) 03/09/18 17:45 Sodium 141 mmol/L (132-148) 03/12/18 06:00 Potassium 4.4 mmol/L (3.6-5.0) 03/12/18 06:00 Chloride 114 mmol/L (98-107) H 03/12/18 06:00 Carbon Dioxide 20 mmol/L (21-33) L 03/12/18 06:00 Anion Gap 12 (10-20) 03/12/18 06:00 BUN 36 mg/dL (7-21) H 03/12/18 06:00 Creatinine 3.0 mg/dl (0.7-1.2) H 03/12/18 06:00 Est GFR ( Amer) 19 03/12/18 06:00 Est GFR (Non-Af Amer) 16 03/12/18 06:00 POC Glucose (mg/dL) 127 mg/dL (65-110) H 03/12/18 17:11 Random Glucose 94 mg/dL (70-110) 03/12/18 06:00 Hemoglobin A1c 7.2 % (4.2-6.5) H 03/10/18 06:40 Calcium 8.4 mg/dL (8.4-10.5) 03/12/18 06:00 Phosphorus 4.4 mg/dL (2.5-4.5) 03/09/18 22:04 Magnesium 1.7 mg/dL (1.7-2.2) 03/09/18 22:04 Total Bilirubin 0.4 mg/dL (0.2-1.3) 03/12/18 06:00 AST 27 U/L (14-36) 03/12/18 06:00 ALT 25 U/L (7-56) 03/12/18 06:00 Alkaline Phosphatase 94 U/L (38-126) 03/12/18 06:00 C-Reactive Protein < 5.00 mg/L (0.0-9.9) 03/09/18 22:04 Total Protein 6.8 g/dL (5.8-8.3) 03/12/18 06:00 Albumin 3.4 g/dL (3.0-4.8) 03/12/18 06:00 Globulin 3.5 gm/dL 03/12/18 06:00 Albumin/Globulin Ratio 1.0 (1.1-1.8) L 03/12/18 06:00 Triglycerides 68 mg/dL (35-160) 03/10/18 06:40 Cholesterol 135 mg/dL (130-200) 03/10/18 06:40 LDL Cholesterol Direct 67 mg/dL (0-129) 03/10/18 06:40 HDL Cholesterol 53 mg/dL (29-60) 03/10/18 06:40 Procalcitonin < 0.05 NG/ML (0.19-0.49) L 03/09/18 19:25 PTH Intact Whole Molec 452 pg/mL (14-64) H 03/09/18 22:04 Urine Color Light yellow (YELLOW) 03/10/18 21:30 Urine Appearance Sl cloudy (CLEAR) 03/10/18 21:30 Urine pH 6.0 (4.7-8.0) 03/10/18 21:30 Ur Specific [place] 1.025 (1.005-1.035) 03/10/18 21:30 Urine Protein Negative mg/dL (<30 mg/dL) 03/10/18 21:30 Urine Glucose (UA) Negative mg/dL (NEGATIVE) 03/10/18 21:30 Urine Ketones Negative mg/dL (NEGATIVE) 03/10/18 21:30 Urine Blood Negative (NEGATIVE) 03/10/18 21:30 Urine Nitrate Negative (NEGATIVE) 03/10/18 21:30 Urine Bilirubin Negative (NEGATIVE) 03/10/18 21:30 Urine Urobilinogen 0.2 E.U./dL (<1 E.U./dL) 03/10/18 21:30 Ur Leukocyte Esterase Negative Analilia/uL (NEGATIVE) 03/10/18 21:30 Ur Random Creatinine 63 mg/dL 03/10/18 00:15 Ur Random Sodium 131 meq/L 03/10/18 00:15 Urine Microalbumin 30.1 mg/L (0.0-16.6) H 03/10/18 00:15 Attending/Attestation - Attestation I have personally seen and examined this patient.: Yes I have fully participated in the care of the patient.: Yes I have reviewed all pertinent clinical information, including history, physical exam and plan: Yes Notes (Text): 03/12/18 57 year old female with past medical history of diabetes, hypertension, peripheral neuropathy and dyslipidemia who presented with left foot 3rd digit ulceration. Sent by her auto salvage worker to rule out osteomyelitis. Xray and MRI done which were negative for osteomyelitis. ESR and CRP are not elevated. She was started on iv antibiotics as per ID and also seen by podiatry for wound care. LE doppler showed possible right tibial occlusive disease. IR evaluation was appreciated who recommended no further work up. Patient was also found to have acute on chronic kidney disease. Her metformin, HCTZ and losartan were held. Renal US was negative. She was seen by nephrology who recommended close outpatient follow up. She was started on norvasc for hypertension. Patient is discharged home to follow up with her pmd. Follow up with podiatry. Continue with po antibiotics. Follow up with hand cigar making supervisor. Monitor kidney function closely as outpatient. Ana Brock MD Hospitalist.
--- NOTE | 2018-03-12 23:28 | PN ---
DATE: 03/12/2018 SUBJECTIVE: The patient is seen lying in bed. She is awake, she is alert, she is comfortable. She denies any pain. She denies any shortness of breath. PHYSICAL EXAMINATION: GENERAL: A middle-aged lady lying in bed. VITAL SIGNS: Blood pressure 144/88, heart rate 73, respiratory rate 19, temperature 98.1. HEENT: Normocephalic, atraumatic, positive pallor. NECK: Supple, no JVD. LUNGS: Bilateral equal air entry, bilateral equal expansion. CARDIAC: S1 and S2, regular rate and rhythm, no murmur, no rub. ABDOMEN: Soft, nondistended, nontender, bowel sounds present. EXTREMITIES: Dressing of the left toe. INTAKE AND OUTPUT: Not charted. LABORATORY DATA: WBC 6.8, hemoglobin 10.2, hematocrit 32.7, platelets 213. Sodium 141, potassium 4.4, chloride 114, CO2 of 20, BUN 36, creatinine 2.0, glucose 94, calcium 8.4. MEDICATIONS: Lovenox 30, Neurontin 300, amlodipine 5, Zosyn 3.75 every 8 hours. ASSESSMENT: 1. Acute kidney injury superimposed on chronic kidney disease stage III. 2. Acute tubular necrosis in the setting of sepsis. 3. Longstanding diabetes. 4. Hypertension. 5. Diabetic foot ulcer. PLAN: 1. Avoid nephrotoxins. 2. Continue antibiotics as per ID recommendations. 3. Close outpatient followup. 4. No objection to discharge. Ofelia John MD
== END 2018-03-12 18:09 | disposition home or self-care (01) | DRG 684 ==
LOC: ED 16:40 → ERH 19:43 → 3RNO 23:33
PROVIDERS: ADMIT Internal Medicine; ATTEND Internal Medicine
DX: N17.0 Acute kidney failure with tubular necrosis (principal); E83.51 Hypocalcemia; I12.9 Hypertensive chronic kidney disease with stage 1 through stage 4 chronic kidney disease, or unspecified chronic kidney disease; E11.69 Type 2 diabetes mellitus with other specified complication; L97.529 Non-pressure chronic ulcer of other part of left foot with unspecified severity; E78.5 Hyperlipidemia, unspecified; E11.65 Type 2 diabetes mellitus with hyperglycemia; N18.3 Chronic kidney disease, stage 3 (moderate); E11.22 Type 2 diabetes mellitus with diabetic chronic kidney disease; E11.319 Type 2 diabetes mellitus with unspecified diabetic retinopathy without macular edema; E11.42 Type 2 diabetes mellitus with diabetic polyneuropathy; E11.621 Type 2 diabetes mellitus with foot ulcer; E11.21 Type 2 diabetes mellitus with diabetic nephropathy; E11.51 Type 2 diabetes mellitus with diabetic peripheral angiopathy without gangrene; L08.9 Local infection of the skin and subcutaneous tissue, unspecified; S92.503A Displaced unspecified fracture of unspecified lesser toe(s), initial encounter for closed fracture; Z79.84 Long term (current) use of oral hypoglycemic drugs; Z90.49 Acquired absence of other specified parts of digestive tract; Z90.710 Acquired absence of both cervix and uterus; Z98.84 Bariatric surgery status; Z80.0 Family history of malignant neoplasm of digestive organs; Z80.42 Family history of malignant neoplasm of prostate; Z83.3 Family history of diabetes mellitus